=== PATIENT | female | born 2000 | race Caucasian/White ===

== ENCOUNTER 2022-08-01 16:32 | Inpatient (IN) ==
[2022-08-01 17:19] LABS: Basophils # (auto) 0.06 K/uL (0-0.2); Basophils % (auto) 0.7 %; Eosinophils % (auto) 1.2 %; Hemoglobin 14.3 g/dl (12.0-16.0); Immature Granulocytes # (auto) 0.01 K/uL (0.00-0.02); Immature Granulocytes % (auto) 0.1 %; Lymphocytes # (auto) 2.91 K/uL (1.2-3.4); Lymphocytes % (auto) 34.1 %; Mean Corpuscular Hemoglobin 31.7 pg (25.0-34.0); Mean Corpuscular Volume 93.1 fL (80.0-100.0); Monocytes # (auto) 0.38 K/uL (0.24-0.82); Monocytes % (auto) 4.5 %; Neutrophils # (auto) 5.07 K/uL (1.4-6.5); Neutrophils % (auto) 59.4 %; Platelet Count 250 K/uL (130-400); RDW Standard Deviation 41.3 fL (36.4-46.3); Red Blood Count 4.51 M/uL (3.93-5.22); White Blood Count 8.53 K/ul (4.8-10.8)
[2022-08-01 17:23] LABS: Appearance Urine Clear (Clear); Bacteria Urine Automated 1+ (Negative); Bilirubin Urine Negative (Negative); Blood Urine Trace (Negative); Cast Urine Automated 0 /lpf (0-5); Color Urine Yellow; Epithelial Cell Urine Auto 20-30 /lpf (0-5); Glucose Urine UA Negative (Negative); Ketones Urine Negative (Negative); Leukocyte Esterase Urine Negative (Negative); Nitrite Urine Negative (Negative); Protein Urine Negative (Negative); RBC Urine Automated 0-4 /hpf (0-4); Specific Gravity Urine 1.007 (1.000-1.030); Urobilinogen Urine Negative (Negative)
--- NOTE | 2022-08-01 17:39 | Emergency Department Note ---
Impression & Plan Depression with suicidal ideation Admission ED Provider Note HPI: The patient is a 22-year-old female who presents to the emergency department with a chief complaint of increasing anxiety and depression and thoughts of self-harm. Patient is requesting inpatient admission for psychiatric care. On arrival the patient is hemodynamically stable, she is in no acute distress. She states that she does not know exactly why she has been feeling this way recently, denies any particular new stressors in her life, denies any plan to harm herself but states that she is having increasing feelings of self-harm generally. Patient denies any alcohol use or drug use. ROS: -Psychiatric: Anxiety/depression, suicidal thoughts *10 point review systems was conducted and is otherwise negative unless stated above *Outpatient medications and allergy history reviewed PE: General: Alert HEENT: Normocephalic, trachea midline Eyes: Extraocular eye movement is intact, no scleral erythema Pulmonary: Clear to auscultation bilaterally, no wheezing Cardio: Regular rate and rhythm GI: Abdomen is soft, nontender : No suprapubic tenderness MSK: No evidence of trauma or malformation of the extremities, no edema Skin: No evidence of rash Neuro: Alert, no focal deficits Psychiatric: Cooperative Medical Decision Making: Patient appears well on arrival here to the ED, she complains of some increasing anxiety/depression and is stating that she is having suicidal thoughts without a plan. Patient is requesting inpatient admission. Patient was medically cleared here in the ED and assessed by case management, she is determined appropriate for 201 admission. Bed search was initiated and the patient was accepted here 3 S. for inpatient psychiatric care. Patient was in agreement to this and 2010 signed by myself. Patient was transferred to 3 S. in stable condition for inpatient care. Diagnosis: 1. Suicidal thoughts 2. Anxiety/depression Disposition: Admission to psychiatry under 201 Tano Steven DO Emergency Medicine Past Med/Surg History Social History Smoking Status: Never smoker Feels Safe at Home: Yes Allergies Allergies Allergy/AdvReac Type Severity Reaction Status Date / Time No Known Allergies Allergy Unverified 08/01/22 17:47 Home Meds Home Medications Medication Instructions Recorded Confirmed Lexapro 20 mg PO DAILY 08/01/22 08/01/22 Results & Data (ED) Vital Signs Vital Signs - 24 hr 08/01/22 16:43 08/01/22 20:00 Temperature 36.1 C L Temperature Source Temporal Artery Scan Pulse Rate 88 Pulse Rate [Apical] 70 Respiratory Rate 22 16 Respiratory Effort / Characteristics Non-Labored Spontaneous Non-Labored Respiratory Depth Normal Normal Blood Pressure 129/83 Blood Pressure [Right Arm] 109/63 Blood Pressure Mean 98 Blood Pressure Mean [Right Arm] 78 Pulse Oximetry 98 97 Oxygen Delivery Method Room Air Room Air Sepsis Recent Fever Within 48 Hours No Sepsis New/Unexplained Change in Mental Status No Sepsis Action Taken by Nursing No Action Required Laboratory Data Result diagrams: 08/01/22 17:05 08/01/22 17:05 Lab Results 08/01/22 08/01/22 08/01/22 Range/Units 17:05 17:05 17:05 WBC 8.53 (4.8-10.8) K/ul RBC 4.51 (3.93-5.22) M/uL Hgb 14.3 (12.0-16.0) g/dl Hct 42.0 (34.1-44.9) % MCV 93.1 (80.0-100.0) fL MCH 31.7 (25.0-34.0) pg MCHC 34.0 (32.0-36.0) g/dL RDW Std Deviation 41.3 (36.4-46.3) fL RDW Coeff of Kapil 12.0 (11.5-14.5) % Plt Count 250 (130-400) K/uL MPV 12.0 (9.4-12.3) fL Immature Gran % (Auto) 0.1 % Neut % (Auto) 59.4 % Lymph % (Auto) 34.1 % [place] % (Auto) 4.5 % Eos % (Auto) 1.2 % Baso % (Auto) 0.7 % Neut # (Auto) 5.07 (1.4-6.5) K/uL Lymph # (Auto) 2.91 (1.2-3.4) K/uL [place] # (Auto) 0.38 (0.24-0.82) K/uL Eos # (Auto) 0.10 (0-0.50) K/uL Baso # (Auto) 0.06 (0-0.2) K/uL Immature Gran # (Auto) 0.01 (0.00-0.02) K/uL Sodium 139 (136-145) mmol/L Potassium 4.2 (3.5-5.1) mmol/L Chloride 105 (98-107) mmol/L Carbon Dioxide 28 (21-32) mmol/L Anion Gap 6 (3-11) BUN 9 (6-23) mg/dl Creatinine 0.64 (0.6-1.2) mg/dl Est Cr Clr Drug Dosing 126.2 ml/min Est GFR ( Amer) 148.9 ml/min Est GFR (Non-Af Amer) 128.5 ml/min BUN/Creatinine Ratio 14.1 (10-20) Glucose 75 (70-99(Fasting)) mg/dl Calcium 9.9 (8.5-10.1) mg/dl Total Bilirubin 0.4 (0.2-1.0) mg/dl AST 12 L (13-39) U/L ALT 10 (7-52) U/L Alkaline Phosphatase 56 (34-104) U/L Total Protein 7.7 (6.0-8.3) gm/dl Albumin 4.5 (3.4-5.0) gm/dl Globulin 3.2 (2.5-4.0) gm/dl Albumin/Globulin Ratio 1.4 (0.9-2) TSH 2.187 (0.300-4.500) uIu/ml Urine Color Urine Appearance (Clear) Urine pH (4.5-7.5) Ur Specific [place] (1.000-1.030) Urine Protein (Negative) Urine Glucose (UA) (Negative) Urine Ketones (Negative) Urine Blood (Negative) Urine Nitrite (Negative) Urine Bilirubin (Negative) Urine Urobilinogen (Negative) Ur Leukocyte Esterase (Negative) Urine WBC (Auto) (0-5) /hpf Urine RBC (Auto) (0-4) /hpf U Hyaline Cast (Auto) (0-5) /lpf U Epithel Cells (Auto) (0-5) /lpf Urine Bacteria (Auto) (Negative) POC Ur Test (NEG) Salicylates (3.0-30) mg/dl Urine Opiates Screen (Neg) Ur Methadone, Qual (Neg) Acetaminophen (10-30) ug/ml Urine Barbiturates (Neg) Ur Phencyclidine (PCP) (Neg) U Amphetamin/Meth Scrn (Neg) MDMA (Ecstasy) Screen (Neg) U Benzodiazepines Scrn (Neg) Ur Cocaine Metabolite (Neg) U Marijuana (THC) Screen (Neg) Ethyl Alcohol mg/dL (<10.0) mg/dl SARS-CoV-2, RNA, NAAT (NEGATIVE) 08/01/22 08/01/22 08/01/22 Range/Units 17:05 17:05 17:06 WBC (4.8-10.8) K/ul RBC (3.93-5.22) M/uL Hgb (12.0-16.0) g/dl Hct (34.1-44.9) % MCV (80.0-100.0) fL MCH (25.0-34.0) pg MCHC (32.0-36.0) g/dL RDW Std Deviation (36.4-46.3) fL RDW Coeff of Kapil (11.5-14.5) % Plt Count (130-400) K/uL MPV (9.4-12.3) fL Immature Gran % (Auto) % Neut % (Auto) % Lymph % (Auto) % [place] % (Auto) % Eos % (Auto) % Baso % (Auto) % Neut # (Auto) (1.4-6.5) K/uL Lymph # (Auto) (1.2-3.4) K/uL [place] # (Auto) (0.24-0.82) K/uL Eos # (Auto) (0-0.50) K/uL Baso # (Auto) (0-0.2) K/uL Immature Gran # (Auto) (0.00-0.02) K/uL Sodium (136-145) mmol/L Potassium (3.5-5.1) mmol/L Chloride (98-107) mmol/L Carbon Dioxide (21-32) mmol/L Anion Gap (3-11) BUN (6-23) mg/dl Creatinine (0.6-1.2) mg/dl Est Cr Clr Drug Dosing ml/min Est GFR ( Amer) ml/min Est GFR (Non-Af Amer) ml/min BUN/Creatinine Ratio (10-20) Glucose (70-99(Fasting)) mg/dl Calcium (8.5-10.1) mg/dl Total Bilirubin (0.2-1.0) mg/dl AST (13-39) U/L ALT (7-52) U/L Alkaline Phosphatase (34-104) U/L Total Protein (6.0-8.3) gm/dl Albumin (3.4-5.0) gm/dl Globulin (2.5-4.0) gm/dl Albumin/Globulin Ratio (0.9-2) TSH (0.300-4.500) uIu/ml Urine Color Yellow Urine Appearance Clear (Clear) Urine pH 7.0 (4.5-7.5) Ur Specific [place] 1.007 (1.000-1.030) Urine Protein Negative (Negative) Urine Glucose (UA) Negative (Negative) Urine Ketones Negative (Negative) Urine Blood Trace H (Negative) Urine Nitrite Negative (Negative) Urine Bilirubin Negative (Negative) Urine Urobilinogen Negative (Negative) Ur Leukocyte Esterase Negative (Negative) Urine WBC (Auto) 1-5 (0-5) /hpf Urine RBC (Auto) 0-4 (0-4) /hpf U Hyaline Cast (Auto) 0 (0-5) /lpf U Epithel Cells (Auto) 20-30 H (0-5) /lpf Urine Bacteria (Auto) 1+ H (Negative) POC Ur Test (NEG) Salicylates < 3.0 L (3.0-30) mg/dl Urine Opiates Screen (Neg) Ur Methadone, Qual (Neg) Acetaminophen < 3 L (10-30) ug/ml Urine Barbiturates (Neg) Ur Phencyclidine (PCP) (Neg) U Amphetamin/Meth Scrn (Neg) MDMA (Ecstasy) Screen (Neg) U Benzodiazepines Scrn (Neg) Ur Cocaine Metabolite (Neg) U Marijuana (THC) Screen (Neg) Ethyl Alcohol mg/dL < 10.0 (<10.0) mg/dl SARS-CoV-2, RNA, NAAT (NEGATIVE) 08/01/22 08/01/22 08/01/22 Range/Units 17:06 17:12 17:54 WBC (4.8-10.8) K/ul RBC (3.93-5.22) M/uL Hgb (12.0-16.0) g/dl Hct (34.1-44.9) % MCV (80.0-100.0) fL MCH (25.0-34.0) pg MCHC (32.0-36.0) g/dL RDW Std Deviation (36.4-46.3) fL RDW Coeff of Kapil (11.5-14.5) % Plt Count (130-400) K/uL MPV (9.4-12.3) fL Immature Gran % (Auto) % Neut % (Auto) % Lymph % (Auto) % [place] % (Auto) % Eos % (Auto) % Baso % (Auto) % Neut # (Auto) (1.4-6.5) K/uL Lymph # (Auto) (1.2-3.4) K/uL [place] # (Auto) (0.24-0.82) K/uL Eos # (Auto) (0-0.50) K/uL Baso # (Auto) (0-0.2) K/uL Immature Gran # (Auto) (0.00-0.02) K/uL Sodium (136-145) mmol/L Potassium (3.5-5.1) mmol/L Chloride (98-107) mmol/L Carbon Dioxide (21-32) mmol/L Anion Gap (3-11) BUN (6-23) mg/dl Creatinine (0.6-1.2) mg/dl Est Cr Clr Drug Dosing ml/min Est GFR ( Amer) ml/min Est GFR (Non-Af Amer) ml/min BUN/Creatinine Ratio (10-20) Glucose (70-99(Fasting)) mg/dl Calcium (8.5-10.1) mg/dl Total Bilirubin (0.2-1.0) mg/dl AST (13-39) U/L ALT (7-52) U/L Alkaline Phosphatase (34-104) U/L Total Protein (6.0-8.3) gm/dl Albumin (3.4-5.0) gm/dl Globulin (2.5-4.0) gm/dl Albumin/Globulin Ratio (0.9-2) TSH (0.300-4.500) uIu/ml Urine Color Urine Appearance (Clear) Urine pH (4.5-7.5) Ur Specific [place] (1.000-1.030) Urine Protein (Negative) Urine Glucose (UA) (Negative) Urine Ketones (Negative) Urine Blood (Negative) Urine Nitrite (Negative) Urine Bilirubin (Negative) Urine Urobilinogen (Negative) Ur Leukocyte Esterase (Negative) Urine WBC (Auto) (0-5) /hpf Urine RBC (Auto) (0-4) /hpf U Hyaline Cast (Auto) (0-5) /lpf U Epithel Cells (Auto) (0-5) /lpf Urine Bacteria (Auto) (Negative) POC Ur Test NEG (NEG) Salicylates (3.0-30) mg/dl Urine Opiates Screen Neg (Neg) Ur Methadone, Qual Neg (Neg) Acetaminophen (10-30) ug/ml Urine Barbiturates Neg (Neg) Ur Phencyclidine (PCP) Neg (Neg) U Amphetamin/Meth Scrn Neg (Neg) MDMA (Ecstasy) Screen Neg (Neg) U Benzodiazepines Scrn Neg (Neg) Ur Cocaine Metabolite Neg (Neg) U Marijuana (THC) Screen Pos H (Neg) Ethyl Alcohol mg/dL (<10.0) mg/dl SARS-CoV-2, RNA, NAAT NEGATIVE (NEGATIVE) Discharge Plan Visit Data Chief Complaint: Mental Health Evaluation Stated Complaint: MENTAL HEALTH SCREEING ED Provider: Tano Steven Discharge Problem: Depression with suicidal ideation Patient Disposition: Admitted As Inpatient Forms Stand Alone Forms: My [facility], Suicide Prevention Resources Prescriptions Prescriptions: No Action Lexapro 20 mg 20 mg PO DAILY Referrals [facility]errals: [facility] [Primary Care Provider] -
[2022-08-01 17:42] LABS: Acetaminophen < 3 ug/ml (10-30); Salicylate < 3.0 mg/dl (3.0-30)
[2022-08-01 17:43] LABS: Albumin Globulin Ratio 1.4 (0.9-2); Albumin Level 4.5 gm/dl (3.4-5.0); BUN Creatinine Ratio 14.1 (10-20); Bilirubin,Total 0.4 mg/dl (0.2-1.0); Calcium 9.9 mg/dl (8.5-10.1); Creatinine Clr Calc Pharmacy 126.2 ml/min; Est GFR (African American) 148.9 ml/min; Est GFR (Non-African American) 128.5 ml/min; Globulin 3.2 gm/dl (2.5-4.0); Potassium 4.2 mmol/L (3.5-5.1); Total Protein 7.7 gm/dl (6.0-8.3)
[2022-08-01 18:04] LABS: Amphetamines+Metham, Urine Neg (Neg); Barbiturates, Urine Neg (Neg); Benzodiazepine, Urine Neg (Neg); Cocaine, Urine Neg (Neg); MDMA (Ecstacy), Urine Neg (Neg); Methadone, Urine Neg (Neg); Opiate, Urine Neg (Neg); Phencyclidine, Urine Neg (Neg)
[2022-08-01] MEDS ORDERED: MAGNESIUM HYDROXIDE SUSP 30 ML UDC PO PRN (22:40)
[2022-08-01] MEDS ORDERED: BISMUTH SUBSALICYLATE LIQD 236 ML PO PRN (22:40)
[2022-08-01] MEDS ORDERED: SODIUM CHLORIDE 0.65% NA SOLN 45 ML (OCEAN) PRN (22:40)
[2022-08-01] MEDS ORDERED: ALUMINUM/MAGNESIUM SUSP 30 ML UDC PO PRN (22:40)
[2022-08-01] MEDS ORDERED: hydrOXYzine HCl 25 MG TAB PO PRN ×2 (22:40)
[2022-08-02] MEDS ORDERED: FLUARIX QUADRIVALENT 0.5 ML SYR IM ONE (00:23)
--- NOTE | 2022-08-02 13:14 | History & Physical ---
Date of Service August 02, 2022 Impression / Recommendations Impression 22 yo female with hx of depression and self-injurious behavior presents with persistent suicidal ideation and decline in overall functioning. (1) Depression with suicidal ideation: Plan The patient was admitted to the [facility] ([facility] unit) on q15 min checks (behavioral with suicide precautions) for safety. The patient will participate in group, recreational, and milieu therapies and will be offered additional individual and family sessions as clinically appropriate. Risks/benefits/alternatives reviewed re: antidepressants for the treatment of depression and/or anxiety. Discussion included but was not limited to FDA warnings re: suicidality in adolescents and young adults. The patient agreed continue Lexapro titration as discussed with her prescriber to 20 mg Lexapro daily. Inventory Assets Strengths: intelligent, help seeking Needs: improve coping skills, resume outpatient therapy Suicide Risk Level Suicide Risk Level: High-Moderate (q15 min suicide checks) Risk Factors Assessment : Yes Do You Have Access To A Gun?: No Mental Health Diagnoses: Yes Previous Attempt: No Previous Psychiatric Hospitalization: No Protective Factors Assessment Responsible for Young Children: No Employed: No Supportive Family: Yes Psychiatric History Identifying Data SARAHI REIS is a 22-year-old F who currently lives in [place], has a history of SIB, and was admitted on 08/01/22 22:40 on a 201 voluntary commitment for suicidal ideation. Chief Complaint "I've just been either numb or really really down and cutting doesn't help like it used to so I got worried what I might do". History of Present Illness Patient reports a history of depression and being in/out of therapy and on/off meds since age 15. She reports having a great start to the semester but after 3- 5 weeks noted a "down trend." She is having very depressed phases for 2-3 days at a time with little break in symptoms between. She hasn't been participating in therapy this semester as had to wait for assignment to another provider after her therapist relocated. She is scheduled for a meeting tomorrow but given persistence of SI, she called her mother for help and they both called [facility] for more urgent attention. She has been sleeping more, missing more class than is customary for her. 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 She describes the support of her fraternity as "the only good thing about college" but then qualifies that she enjoys college lifestyle and is looking forward to getting back to class, just not "big decisions" like whether or not to continue with her major. She reports always needing greater than 12 hours a sleep a day and currently some of her napping behaviors are avoidance. She denies that her cutting is an actual suicide attempt and states she was ambivalent about a plan but experiencing a lot of numbness. She has some superficial scratches on the back of her left wrist, mainly as "that's where my watch would cover." Past Psychiatric History Current Psychiatric Diagnosis: depression with suicidal ideation Previous Psych Admissions: none Do You Have Access To A Gun?: No History of Previous Suicide Attempt: No Past Medication Trials: Zoloft ("made me tired"), Wellbutrin Allergies Allergy/AdvReac Type Severity Reaction Status Date / Time No Known Allergies Allergy Unverified 08/01/22 17:47 Home Medications Medication Instructions Recorded Confirmed Type Lexapro 20 mg PO DAILY 08/01/22 08/01/22 History Family History Family History of: Doesn't Know Family Mental Health History Comment: thinks depression runs in her family but doesn't know specifics Alcohol History Hx of Alcohol Use Over the Past 12 Months: Yes (social drinking) AUDIT Total Score: 2 Smoking Use Have You Smoked or Used Tobacco Products in the Last 30 Days: No Smoking Status: Never smoker Substance History Hx of Prescription Med Misuse Over the Past 12 Months: No Hx of Over the Counter Med Misuse Over the Past 12 Months: No Hx of Inhalent Misuse Over the Past 12 Months: No Hx of Organic Substance Use Over the Past 12 Months: Yes (MJ weekly) Hx of Illegal Substances/Street Drug Use Over Past 12 Months: No Problems as a Result of Past Substance Use: None Identified Personal History Living Arrangements: Apartment Highest Grade Completed: Some College Highest Grade Completed Comment: josh, studying [employer] (6 year program) Marital Status: Single Number Of Children: 0 Beliefs That Will Affect Care: None Current Legal Problems: No Hx Traumatic Life Events: No (though did mention an unhealthy relationship in high school) Patient History Medical History (Updated 08/02/22 @ 13:10 by Xenia Cardenas MD) No active medical problems Social History Smoking Status: Never smoker Preferred Language: Yakut Communication Ability: Effective Licensed Sales Producer Required: No Beliefs That Will Affect Care: None Feels Safe at Home: Yes Assistive Devices: Contacts Review of Systems Review of Systems: All systems reviewed & are unremarkable except as noted in HPI & below Physical Exam Psychiatric: Orientation: alert and oriented x 3 Apperance: appropriately dressed and appropriately groomed Eye Contact: good eye contact Motor Behavior: no abnormal motor movements Speech: normal rate/rhythm/volume of speech Affect: + depressed affect Mood: + depressed mood Thought Process: goal directed thought process Thought Content: reality based without delusions Suicidal Thoughts: denies suicidal plan (on unit but unable to safety plan, active cutting); + reports suicidal thoughts (intemittent) Homicidal Thoughts: denies homicidal thoughts Hallucinations: no auditory hallucinations and no visual hallucinations Cognition: attention grossly intact and language grossly intact Estimated Intelligence: consistent with education level Insight: + limited insight Judgement: + limited judgement Vital Signs (Past 24 Hours): Last Vital Signs Temp 36.6 C 08/02/22 06:45 Pulse 82 08/02/22 06:46 Resp 16 08/02/22 06:45 BP 95/64 L 08/02/22 06:46 Pulse Ox 97 08/01/22 20:00 O2 Del Method 08/01/22 20:00 Exam Statement: A physical exam was performed in the ED by Dr. Steven for the purposes of medical clearance. I accept that physical as correct and adequate for the purposes of the inpatient physical exam. Results & Data ([facility]) Laboratory Results Laboratory Results - last 24 hr 08/01/22 08/01/22 08/01/22 17:05 17:05 17:05 WBC 8.53 RBC 4.51 Hgb 14.3 Hct 42.0 MCV 93.1 MCH 31.7 MCHC 34.0 RDW Std Deviation 41.3 RDW Coeff of Kapil 12.0 Plt Count 250 MPV 12.0 Immature Gran % (Auto) 0.1 Neut % (Auto) 59.4 Lymph % (Auto) 34.1 [place] % (Auto) 4.5 Eos % (Auto) 1.2 Baso % (Auto) 0.7 Neut # (Auto) 5.07 Lymph # (Auto) 2.91 [place] # (Auto) 0.38 Eos # (Auto) 0.10 Baso # (Auto) 0.06 Immature Gran # (Auto) 0.01 Sodium 139 Potassium 4.2 Chloride 105 Carbon Dioxide 28 Anion Gap 6 BUN 9 Creatinine 0.64 Est Cr Clr Drug Dosing 126.2 Est GFR ( Amer) 148.9 Est GFR (Non-Af Amer) 128.5 BUN/Creatinine Ratio 14.1 Glucose 75 Calcium 9.9 Total Bilirubin 0.4 AST 12 L ALT 10 Alkaline Phosphatase 56 Total Protein 7.7 Albumin 4.5 Globulin 3.2 Albumin/Globulin Ratio 1.4 TSH 2.187 Urine Color Urine Appearance Urine pH Ur Specific [place] Urine Protein Urine Glucose (UA) Urine Ketones Urine Blood Urine Nitrite Urine Bilirubin Urine Urobilinogen Ur Leukocyte Esterase Urine WBC (Auto) Urine RBC (Auto) U Hyaline Cast (Auto) U Epithel Cells (Auto) Urine Bacteria (Auto) POC Ur Test Salicylates Urine Opiates Screen Ur Methadone, Qual Acetaminophen Urine Barbiturates Ur Phencyclidine (PCP) U Amphetamin/Meth Scrn MDMA (Ecstasy) Screen U Benzodiazepines Scrn Ur Cocaine Metabolite U Marijuana (THC) Screen U Marijuana THC Carboxy Drug Screen Comment Ethyl Alcohol mg/dL SARS-CoV-2, RNA, NAAT 08/01/22 08/01/22 08/01/22 17:05 17:05 17:06 WBC RBC Hgb Hct MCV MCH MCHC RDW Std Deviation RDW Coeff of Kapil Plt Count MPV Immature Gran % (Auto) Neut % (Auto) Lymph % (Auto) [place] % (Auto) Eos % (Auto) Baso % (Auto) Neut # (Auto) Lymph # (Auto) [place] # (Auto) Eos # (Auto) Baso # (Auto) Immature Gran # (Auto) Sodium Potassium Chloride Carbon Dioxide Anion Gap BUN Creatinine Est Cr Clr Drug Dosing Est GFR ( Amer) Est GFR (Non-Af Amer) BUN/Creatinine Ratio Glucose Calcium Total Bilirubin AST ALT Alkaline Phosphatase Total Protein Albumin Globulin Albumin/Globulin Ratio TSH Urine Color Yellow Urine Appearance Clear Urine pH 7.0 Ur Specific [place] 1.007 Urine Protein Negative Urine Glucose (UA) Negative Urine Ketones Negative Urine Blood Trace H Urine Nitrite Negative Urine Bilirubin Negative Urine Urobilinogen Negative Ur Leukocyte Esterase Negative Urine WBC (Auto) 1-5 Urine RBC (Auto) 0-4 U Hyaline Cast (Auto) 0 U Epithel Cells (Auto) 20-30 H Urine Bacteria (Auto) 1+ H POC Ur Test Salicylates < 3.0 L Urine Opiates Screen Ur Methadone, Qual Acetaminophen < 3 L Urine Barbiturates Ur Phencyclidine (PCP) U Amphetamin/Meth Scrn MDMA (Ecstasy) Screen U Benzodiazepines Scrn Ur Cocaine Metabolite U Marijuana (THC) Screen U Marijuana THC Carboxy Drug Screen Comment Ethyl Alcohol mg/dL < 10.0 SARS-CoV-2, RNA, NAAT 08/01/22 08/01/22 08/01/22 17:06 17:06 17:12 WBC RBC Hgb Hct MCV MCH MCHC RDW Std Deviation RDW Coeff of Kapil Plt Count MPV Immature Gran % (Auto) Neut % (Auto) Lymph % (Auto) [place] % (Auto) Eos % (Auto) Baso % (Auto) Neut # (Auto) Lymph # (Auto) [place] # (Auto) Eos # (Auto) Baso # (Auto) Immature Gran # (Auto) Sodium Potassium Chloride Carbon Dioxide Anion Gap BUN Creatinine Est Cr Clr Drug Dosing Est GFR ( Amer) Est GFR (Non-Af Amer) BUN/Creatinine Ratio Glucose Calcium Total Bilirubin AST ALT Alkaline Phosphatase Total Protein Albumin Globulin Albumin/Globulin Ratio TSH Urine Color Urine Appearance Urine pH Ur Specific [place] Urine Protein Urine Glucose (UA) Urine Ketones Urine Blood Urine Nitrite Urine Bilirubin Urine Urobilinogen Ur Leukocyte Esterase Urine WBC (Auto) Urine RBC (Auto) U Hyaline Cast (Auto) U Epithel Cells (Auto) Urine Bacteria (Auto) POC Ur Test NEG Salicylates Urine Opiates Screen Neg Ur Methadone, Qual Neg Acetaminophen Urine Barbiturates Neg Ur Phencyclidine (PCP) Neg U Amphetamin/Meth Scrn Neg MDMA (Ecstasy) Screen Neg U Benzodiazepines Scrn Neg Ur Cocaine Metabolite Neg U Marijuana (THC) Screen Pos H U Marijuana THC Carboxy Pending Drug Screen Comment Pending Ethyl Alcohol mg/dL SARS-CoV-2, RNA, NAAT 08/01/22 17:54 WBC RBC Hgb Hct MCV MCH MCHC RDW Std Deviation RDW Coeff of Kapil Plt Count MPV Immature Gran % (Auto) Neut % (Auto) Lymph % (Auto) [place] % (Auto) Eos % (Auto) Baso % (Auto) Neut # (Auto) Lymph # (Auto) [place] # (Auto) Eos # (Auto) Baso # (Auto) Immature Gran # (Auto) Sodium Potassium Chloride Carbon Dioxide Anion Gap BUN Creatinine Est Cr Clr Drug Dosing Est GFR ( Amer) Est GFR (Non-Af Amer) BUN/Creatinine Ratio Glucose Calcium Total Bilirubin AST ALT Alkaline Phosphatase Total Protein Albumin Globulin Albumin/Globulin Ratio TSH Urine Color Urine Appearance Urine pH Ur Specific [place] Urine Protein Urine Glucose (UA) Urine Ketones Urine Blood Urine Nitrite Urine Bilirubin Urine Urobilinogen Ur Leukocyte Esterase Urine WBC (Auto) Urine RBC (Auto) U Hyaline Cast (Auto) U Epithel Cells (Auto) Urine Bacteria (Auto) POC Ur Test Salicylates Urine Opiates Screen Ur Methadone, Qual Acetaminophen Urine Barbiturates Ur Phencyclidine (PCP) U Amphetamin/Meth Scrn MDMA (Ecstasy) Screen U Benzodiazepines Scrn Ur Cocaine Metabolite U Marijuana (THC) Screen U Marijuana THC Carboxy Drug Screen Comment Ethyl Alcohol mg/dL SARS-CoV-2, RNA, NAAT NEGATIVE Current Inpatient Medications Current Inpatient Medications: Current Inpatient Medications Acetaminophen (Acetaminophen 325 Mg Tab) 650 mg PO Q4H PRN PRN Reason: Headache or Minor Fever Stop: 08/31/22 22:39 Al Hydrox/Mg Hydrox/Simethicone (Aluminum/Magnesium Susp 30 Ml Udc) 30 ml PO Q4H PRN PRN Reason: GI Upset Stop: 08/31/22 22:39 Bismuth Subsalicylate (Bismuth Subsalicylate Liqd 236 Ml) 15 ml PO PRN PRN PRN Reason: Loose Stool Stop: 08/31/22 22:39 Hydroxyzine HCl (Hydroxyzine Hcl 25 Mg Tab) 50 mg PO HSZ PRN PRN Reason: Insomnia Stop: 08/31/22 22:39 Hydroxyzine HCl (Hydroxyzine Hcl 25 Mg Tab) 25 mg PO Q4H PRN PRN Reason: Anxiety Stop: 08/31/22 22:39 Magnesium Hydroxide (Magnesium Hydroxide Susp 30 Ml Udc) 30 ml PO DAILY PRN PRN Reason: Constipation Stop: 08/31/22 22:39 Sodium Chloride (Sodium Chloride 0.65% Na Soln 45 Ml ([place])) 1 - 2 sprays NA PRN PRN PRN Reason: Nasal Dryness/Congestion Stop: 08/31/22 22:39
[2022-08-02] MEDS: ESCITALOPRAM OXALATE 20 MG TAB PO SCH (13:33)
[2022-08-02] MEDS: ACETAMINOPHEN 325 MG TAB PO PRN (15:26)
[2022-08-03] MEDS: ESCITALOPRAM OXALATE 20 MG TAB PO SCH (09:28)
[2022-08-03] MEDS ORDERED: busPIRone 5 MG TAB PO PRN (12:04)
--- NOTE | 2022-08-03 12:41 | Psychiatric Progress Note ---
Date of Service August 03, 2022 Impression / Recommendations Impression 22 yo female with hx of depression and self-injurious behavior presents with persistent suicidal ideation and decline in overall functioning. 08/03/22: improving (1) Depression with suicidal ideation: Plan 08/03/22: risks/benefits/alternatives reviewed re: prn Buspar 5 mg TID as adjunctive tx for anxiety as Lexapro increase takes time and sister does well with it; patient agreeable. Family session. 08/02/22: The patient was admitted to the [facility] ([facility] mental [facility] unit) on q15 min checks (behavioral with suicide precautions) for safety. The patient will participate in group, recreational, and milieu therapies and will be offered additional individual and family sessions as clinically appropriate. Risks/benefits/alternatives reviewed re: antidepressants for the treatment of depression and/or anxiety. Discussion included but was not limited to FDA warnings re: suicidality in adolescents and young adults. The patient agreed continue Lexapro titration as discussed with her prescriber to 20 mg Lexapro daily. Inventory Assets Strengths: intelligent, help seeking Needs: improve coping skills, resume outpatient therapy Suicide Risk Level Suicide Risk Level: Moderate (q15 min suicide checks) Risk Factors Assessment : Yes Do You Have Access To A Gun?: No Mental Health Diagnoses: Yes Previous Attempt: No Previous Psychiatric Hospitalization: No Protective Factors Assessment Responsible for Young Children: No Employed: No Supportive Family: Yes Interval History Identifying Information SARAHI REIS is a 22-year-old F who currently lives in [place], has a history of SIB, and was admitted on 08/01/22 22:40 on a 201 voluntary commitment for suicidal ideation. Chief Complaint "I feel like I just needed seen quickly, now I"m anxious about next steps." Review of Systems Sleep Information Total Hours of Sleep: 7.25 Sleep Comments: pt on q-15 minute checks Meal Information Percent Meal Consumed - Breakfast: 80 Percent Meal Consumed - Lunch: 50 Percent Meal Consumed - Dinner: 50 Subjective Subjective Patient was seen & assessed and interval progress reviewed with nursing and social work. Tolerating medication. Denies urge to self-injure on unit. Unclear if she and parents are on same page with regards to her semester. Physical Exam Psychiatric Orientation: alert and oriented x 3 Apperance: appropriately dressed and appropriately groomed Eye Contact: good eye contact Motor Behavior: no abnormal motor movements Speech: normal rate/rhythm/volume of speech Affect: + depressed affect Mood: + depressed mood Thought Process: goal directed thought process Thought Content: reality based without delusions Suicidal Thoughts: denies suicidal thoughts and denies suicidal plan Homicidal Thoughts: denies homicidal thoughts Hallucinations: no auditory hallucinations and no visual hallucinations Cognition: attention grossly intact and language grossly intact Estimated Intelligence: consistent with education level Insight: + limited insight Judgement: + limited judgement Vital Signs (Past 24 Hours) Last Vital Signs Temp 36.6 C 08/03/22 06:00 Pulse 96 H 08/03/22 06:41 Resp 16 08/03/22 06:00 BP 95/65 L 08/03/22 06:41 Pulse Ox 97 08/01/22 20:00 O2 Del Method 08/01/22 20:00 Results & Data ([facility]) Current Inpatient Medications Current Inpatient Medications: Current Inpatient Medications Acetaminophen (Acetaminophen 325 Mg Tab) 650 mg PO Q4H PRN PRN Reason: Headache or Minor Fever Stop: 08/31/22 22:39 Last Admin: 08/02/22 15:26 Dose: 650 mg Al Hydrox/Mg Hydrox/Simethicone (Aluminum/Magnesium Susp 30 Ml Udc) 30 ml PO Q4H PRN PRN Reason: GI Upset Stop: 08/31/22 22:39 Bismuth Subsalicylate (Bismuth Subsalicylate Liqd 236 Ml) 15 ml PO PRN PRN PRN Reason: Loose Stool Stop: 08/31/22 22:39 Buspirone HCl (Buspirone 5 Mg Tab) 5 mg PO TID PRN PRN Reason: Anxiety Stop: 09/02/22 13:59 Escitalopram Oxalate (Escitalopram Oxalate 20 Mg Tab) 20 mg PO QAM CHIVO Stop: 09/01/22 12:59 Last Admin: 08/03/22 09:28 Dose: 20 mg Hydroxyzine HCl (Hydroxyzine Hcl 25 Mg Tab) 50 mg PO HSZ PRN PRN Reason: Insomnia Stop: 08/31/22 22:39 Last Admin: 08/02/22 21:19 Dose: 50 mg Magnesium Hydroxide (Magnesium Hydroxide Susp 30 Ml Udc) 30 ml PO DAILY PRN PRN Reason: Constipation Stop: 08/31/22 22:39 Sodium Chloride (Sodium Chloride 0.65% Na Soln 45 Ml ([facility])) 1 - 2 sprays NA PRN PRN PRN Reason: Nasal Dryness/Congestion Stop: 08/31/22 22:39 Mental Health & Subst Abuse Tx Therapist Name of Therapist: Ryan Linn Therapist's Date of Therapist Appointment: 08/10/22 Time of Therapist Appointment: 11:00 AM Therapy Appointment Comment: virtual Tromper Name of Tromper: None Post Discharge Appointments Primary Care Physician Name Of Family Doctor: [facility] - Dr. Vanita Connolly Primary Care Date of Appointment with PCP: 08/16/22 Time of Appointment with PCP: 10 AM Provider Appointment Comment: [address], [place] [address]
[2022-08-03] MEDS: ACETAMINOPHEN 325 MG TAB PO PRN (21:36)
[2022-08-03 23:07] LABS: Marijuana Quant, GCMS Urine 42 ng/mL (<5)
[2022-08-04] MEDS: ESCITALOPRAM OXALATE 20 MG TAB PO SCH (08:53)
--- NOTE | 2022-08-04 09:15 | Discharge Summary ---
Date of Service August 04, 2022 History of Present Illness Patient reports a history of depression and being in/out of therapy and on/off meds since age 15. She reports having a great start to the semester but after 3- 5 weeks noted a "down trend." She is having very depressed phases for 2-3 days at a time with little break in symptoms between. She hasn't been participating in therapy this semester as had to wait for assignment to another provider after her therapist relocated. She is scheduled for a meeting tomorrow but given persistence of SI, she called her mother for help and they both called [facility] for more urgent attention. She has been sleeping more, missing more class than is customary for her. 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 She describes the support of her fraternity as "the only good thing about college" but then qualifies that she enjoys college lifestyle and is looking forward to getting back to class, just not "big decisions" like whether or not to continue with her major. She reports always needing greater than 12 hours a sleep a day and currently some of her napping behaviors are avoidance. She denies that her cutting is an actual suicide attempt and states she was ambivalent about a plan but experiencing a lot of numbness. She has some superficial scratches on the back of her left wrist, mainly as "that's where my watch would cover." Physical Exam Psychiatric See admission H&P and DOD assessment. Vital Signs (Past 24 Hours) Last Vital Signs Temp 36.6 C 08/04/22 06:24 Pulse 83 08/04/22 06:24 Resp 18 08/04/22 06:24 BP 90/59 L 08/04/22 06:26 Pulse Ox 97 08/01/22 20:00 O2 Del Method 08/01/22 20:00 Principal Diagnosis major depressive disorder Psychiatric Data See daily stay summary. In short, safety was maintained and the patient was cooperative with care. Medication changes included titration of Lexapro as planned and they tolerated this well. She was also provided a prn Buspar 5 mg up to TID trial as sister reportedly did well with medication. A family session was held and safety plan was completed prior to discharge. Day of Discharge Assessment Today the patient voices readiness for discharge. They note improvement in mood and deny thoughts to harm self or others. Thoughts remain organized and they are improved from admission. There is no evidence of psychosis. They agree to take mediations as prescribed and keep follow-up appointments. They are stable for discharge to outpatient level of care. Transition of Care Transition Of Care Record: was reviewed with the patient Advance Directives Advance Directives Information Provided: Yes Advance Directives: No Mental Health Advance Directive: No Advance Directives on File: No Living Will: No Power of Professor Of Mathematics: No Advance Directives Reason:: Declines as Mental Health Visit. Suicide Risk Level Suicide Risk Level Comments: Suicide risk at discharge is deemed low as the patient is no longer requiring 24-hr monitoring, has a safety plan, and is free of suicidal ideation at discharge. Risk Factors Assessment : Yes Do You Have Access To A Gun?: No Mental Health Diagnoses: Yes Previous Attempt: No Previous Psychiatric Hospitalization: No Protective Factors Assessment Responsible for Young Children: No Employed: No Supportive Family: Yes Tobacco Cessation at Discharge Tobacco Cessation Medication Prescribed at Discharge: Not Applicable/Non-Smoker Total Time Total Time Spent: Greater Than 30 Minutes Total Time Includes: Examination of the patient, Discharge Planning and Medication Reconciliation Discharge Data Lab Results 08/01/22 08/01/22 08/01/22 17:05 17:05 17:05 WBC 8.53 RBC 4.51 Hgb 14.3 Hct 42.0 MCV 93.1 MCH 31.7 MCHC 34.0 RDW Std Deviation 41.3 RDW Coeff of Kapil 12.0 Plt Count 250 MPV 12.0 Immature Gran % (Auto) 0.1 Neut % (Auto) 59.4 Lymph % (Auto) 34.1 [place] % (Auto) 4.5 Eos % (Auto) 1.2 Baso % (Auto) 0.7 Neut # (Auto) 5.07 Lymph # (Auto) 2.91 [place] # (Auto) 0.38 Eos # (Auto) 0.10 Baso # (Auto) 0.06 Immature Gran # (Auto) 0.01 Sodium 139 Potassium 4.2 Chloride 105 Carbon Dioxide 28 Anion Gap 6 BUN 9 Creatinine 0.64 Est Cr Clr Drug Dosing 126.2 Est GFR ( Amer) 148.9 Est GFR (Non-Af Amer) 128.5 BUN/Creatinine Ratio 14.1 Glucose 75 Calcium 9.9 Total Bilirubin 0.4 AST 12 L ALT 10 Alkaline Phosphatase 56 Total Protein 7.7 Albumin 4.5 Globulin 3.2 Albumin/Globulin Ratio 1.4 TSH 2.187 Urine Color Urine Appearance Urine pH Ur Specific [place] Urine Protein Urine Glucose (UA) Urine Ketones Urine Blood Urine Nitrite Urine Bilirubin Urine Urobilinogen Ur Leukocyte Esterase Urine WBC (Auto) Urine RBC (Auto) U Hyaline Cast (Auto) U Epithel Cells (Auto) Urine Bacteria (Auto) POC Ur Test Salicylates Urine Opiates Screen Ur Methadone, Qual Acetaminophen Urine Barbiturates Ur Phencyclidine (PCP) U Amphetamin/Meth Scrn MDMA (Ecstasy) Screen U Benzodiazepines Scrn Ur Cocaine Metabolite U Marijuana (THC) Screen U Marijuana THC Carboxy Drug Screen Comment Ethyl Alcohol mg/dL SARS-CoV-2, RNA, NAAT 08/01/22 08/01/22 08/01/22 17:05 17:05 17:06 WBC RBC Hgb Hct MCV MCH MCHC RDW Std Deviation RDW Coeff of Kapil Plt Count MPV Immature Gran % (Auto) Neut % (Auto) Lymph % (Auto) [place] % (Auto) Eos % (Auto) Baso % (Auto) Neut # (Auto) Lymph # (Auto) [place] # (Auto) Eos # (Auto) Baso # (Auto) Immature Gran # (Auto) Sodium Potassium Chloride Carbon Dioxide Anion Gap BUN Creatinine Est Cr Clr Drug Dosing Est GFR ( Amer) Est GFR (Non-Af Amer) BUN/Creatinine Ratio Glucose Calcium Total Bilirubin AST ALT Alkaline Phosphatase Total Protein Albumin Globulin Albumin/Globulin Ratio TSH Urine Color Yellow Urine Appearance Clear Urine pH 7.0 Ur Specific [place] 1.007 Urine Protein Negative Urine Glucose (UA) Negative Urine Ketones Negative Urine Blood Trace H Urine Nitrite Negative Urine Bilirubin Negative Urine Urobilinogen Negative Ur Leukocyte Esterase Negative Urine WBC (Auto) 1-5 Urine RBC (Auto) 0-4 U Hyaline Cast (Auto) 0 U Epithel Cells (Auto) 20-30 H Urine Bacteria (Auto) 1+ H POC Ur Test Salicylates < 3.0 L Urine Opiates Screen Ur Methadone, Qual Acetaminophen < 3 L Urine Barbiturates Ur Phencyclidine (PCP) U Amphetamin/Meth Scrn MDMA (Ecstasy) Screen U Benzodiazepines Scrn Ur Cocaine Metabolite U Marijuana (THC) Screen U Marijuana THC Carboxy Drug Screen Comment Ethyl Alcohol mg/dL < 10.0 SARS-CoV-2, RNA, NAAT 08/01/22 08/01/22 08/01/22 17:06 17:06 17:12 WBC RBC Hgb Hct MCV MCH MCHC RDW Std Deviation RDW Coeff of Kapil Plt Count MPV Immature Gran % (Auto) Neut % (Auto) Lymph % (Auto) [place] % (Auto) Eos % (Auto) Baso % (Auto) Neut # (Auto) Lymph # (Auto) [place] # (Auto) Eos # (Auto) Baso # (Auto) Immature Gran # (Auto) Sodium Potassium Chloride Carbon Dioxide Anion Gap BUN Creatinine Est Cr Clr Drug Dosing Est GFR ( Amer) Est GFR (Non-Af Amer) BUN/Creatinine Ratio Glucose Calcium Total Bilirubin AST ALT Alkaline Phosphatase Total Protein Albumin Globulin Albumin/Globulin Ratio TSH Urine Color Urine Appearance Urine pH Ur Specific [place] Urine Protein Urine Glucose (UA) Urine Ketones Urine Blood Urine Nitrite Urine Bilirubin Urine Urobilinogen Ur Leukocyte Esterase Urine WBC (Auto) Urine RBC (Auto) U Hyaline Cast (Auto) U Epithel Cells (Auto) Urine Bacteria (Auto) POC Ur Test NEG Salicylates Urine Opiates Screen Neg Ur Methadone, Qual Neg Acetaminophen Urine Barbiturates Neg Ur Phencyclidine (PCP) Neg U Amphetamin/Meth Scrn Neg MDMA (Ecstasy) Screen Neg U Benzodiazepines Scrn Neg Ur Cocaine Metabolite Neg U Marijuana (THC) Screen Pos H U Marijuana THC Carboxy 42 H Drug Screen Comment SEE NOTE Ethyl Alcohol mg/dL SARS-CoV-2, RNA, NAAT 08/01/22 17:54 WBC RBC Hgb Hct MCV MCH MCHC RDW Std Deviation RDW Coeff of Kapil Plt Count MPV Immature Gran % (Auto) Neut % (Auto) Lymph % (Auto) [place] % (Auto) Eos % (Auto) Baso % (Auto) Neut # (Auto) Lymph # (Auto) [place] # (Auto) Eos # (Auto) Baso # (Auto) Immature Gran # (Auto) Sodium Potassium Chloride Carbon Dioxide Anion Gap BUN Creatinine Est Cr Clr Drug Dosing Est GFR ( Amer) Est GFR (Non-Af Amer) BUN/Creatinine Ratio Glucose Calcium Total Bilirubin AST ALT Alkaline Phosphatase Total Protein Albumin Globulin Albumin/Globulin Ratio TSH Urine Color Urine Appearance Urine pH Ur Specific [place] Urine Protein Urine Glucose (UA) Urine Ketones Urine Blood Urine Nitrite Urine Bilirubin Urine Urobilinogen Ur Leukocyte Esterase Urine WBC (Auto) Urine RBC (Auto) U Hyaline Cast (Auto) U Epithel Cells (Auto) Urine Bacteria (Auto) POC Ur Test Salicylates Urine Opiates Screen Ur Methadone, Qual Acetaminophen Urine Barbiturates Ur Phencyclidine (PCP) U Amphetamin/Meth Scrn MDMA (Ecstasy) Screen U Benzodiazepines Scrn Ur Cocaine Metabolite U Marijuana (THC) Screen U Marijuana THC Carboxy Drug Screen Comment Ethyl Alcohol mg/dL SARS-CoV-2, RNA, NAAT NEGATIVE Hospital Course (1) Depression with suicidal ideation: Plan 08/03/22: risks/benefits/alternatives reviewed re: prn Buspar 5 mg TID as adjunctive tx for anxiety as Lexapro increase takes time and sister does well with it; patient agreeable. Family session. 08/02/22: The patient was admitted to the [facility] ([facility] mental health unit) on q15 min checks (behavioral with suicide precautions) for safety. The patient will participate in group, recreational, and milieu therapies and will be offered additional individual and family sessions as clinically appropriate. Risks/benefits/alternatives reviewed re: antidepressants for the treatment of depression and/or anxiety. Discussion included but was not limited to FDA warnings re: suicidality in adolescents and young adults. The patient agreed continue Lexapro titration as discussed with her prescriber to 20 mg Lexapro daily. Mental Health & Subst Abuse Tx Psychiatrist Name of Psychiatrist: [facility]: Psychiatry - JOVAN Padilla Psychiatrist's Date of Appointment with Psychiatrist: 09/11/22 Time of Appointment with Psychiatrist: 12:30 PM Psychiatric Appointment Comment: A link will be sent to you via e-mail to login to patient portal. Therapist Name of Therapist: Ryan Linn Therapist's Date of Therapist Appointment: 08/10/22 Time of Therapist Appointment: 11:00 AM Therapy Appointment Comment: virtual Yarn Man Name of Yarn Man: None Post Discharge Appointments Primary Care Physician Name Of Family Doctor: [facility] - Dr. Vanita Connolly Primary Care Date of Appointment with PCP: 08/16/22 Time of Appointment with PCP: 10 AM Provider Appointment Comment: [address], [place] [address] Smoking Cessation Counseling Tobacco Cessation Medication Prescribed at Discharge: Not Applicable/Non-Smoker Other #1: Name of Aftercare Appointment: [facility] - Candelariahonorio Reeves Phone Number of Aftercare Appointment: [phone] Date of Aftercare Appointment: 08/07/22 Time of Aftercare Appointment: 1:00 PM Aftercare Appointment Comment: Check [facility] email for Zoom link. #2: Name of Aftercare Appointment: [facility] Phone Number of Aftercare Appointment: [phone] Aftercare Appointment Comment: Complete intake paperwork in your [facility] email to have intake scheduled. #3: Name of Aftercare Appointment: [facility]: Therapy - Dr. Myriam Coffey Phone Number of Aftercare Appointment: [phone] Date of Aftercare Appointment: 08/08/22 Time of Aftercare Appointment: 3:00 PM Aftercare Appointment Comment: A link will be sent to you via email to [employer] your portal. Contact Information Discharge Discharge [address]: [address] [place] [id number] Discharge Plan Discharge Items Patient Disposition: Home - Self-Care Reason For Visit: MDD Discharge Diagnosis: major depressive disorder Activity: Resume your previous activity Non-emergency contact: Primary Care Provider, Psychiatrist and Therapist Call non-emergency contact if: you have any medication questions and your symptoms worsen Follow-up/Referrals: [facility] [Primary Care Provider] - Diet: Regular Addtl Attending Provider Instructions: SPECIAL CARE INSTRUCTIONS: 1. Follow through with your scheduled aftercare appointments. If unable to keep an appointment, please call to reschedule. 2. Take your medication only as prescribed. Medication should not be changed or stopped without the approval of your doctor. In the event of worsening symptoms or concerns about side effects, contact your doctor immediately. 3. Utilize new healthy coping skills, anger management skills, and stress management skills learned during your hospitalization. Journal feelings and process them with a support person. Identify stressors or situations that may result in relapse, deterioration or inappropriate behaviors and develop a plan to deal with those issues. 4. If your coping skills are ineffective and you are in crisis, contact your outpatient providers for direction. If unable to reach your providers, please call the [facility] CRISIS LINE AT , go to the [facility] walk-in center at [address], [address], [place], or go to the closest Emergency Room. 5. Avoid alcohol and un-prescribed drugs. 6. You have been provided with the Mental Health Advance Directives Pamphlet for your review. 7. Your condition is stable for discharge to outpatient level of care, but recovery is an ongoing process. Ifthoughts to harm yourself or others return, follow the safety plan developed during your stay. Planning for a safe return home includes securing weapons. Our treatment team recommends weaponsbe removed from the home until your outpatient provider reassesses your progress. In rare cases where the items themselvescannot be removed, guns and ammunitionshould be secured separatelyand keys stored by a reliable personoutside of the home. If you were admitted on an involuntary commitment, the police or other legal authorities may be involved in this process. AFTERCARE APPOINTMENTS: * Please call your insurance company prior to your scheduled appointment to confirm your aftercare providers are covered. Take your insurance information to your appointments. WHO TO CALL AND WHEN: Medical Emergencies: For questions or emergencies related to your hospital stay, please contact the Inpatient Behavioral Health Unit at [phone]. A plate filler is on-call 30/04 for the Behavioral Health Unit for emergencies At any time you feel your situation is an emergency, you may also call 911 immediately. Pending Studies at Discharge: No Stand-Alone Forms: My [facility], Smoking Cessation Medications and DC Order Prescriptions: New buspirone 5 mg Tablet 5 mg PO TID PRN (Reason: anxiety) Qty: 30 0RF escitalopram oxalate 20 mg Tablet 20 mg PO QAM Qty: 30 0RF Discharge Orders: Discharge Order (Routine); Ordered 08/04/22 Ordered By: Xenia Cardenas Admission Data Admit Date/Time: 08/01/22 22:40 Attending Provider: Xenia Cardenas Admit Provider: Xenia Cardenas Primary Care Provider: [facility] Other Interventions: Discharge Summary Assessment (RN) Last Done: 08/04/22 09:47 PSY Interdisciplinary Discharge Planning Last Done: 08/04/22 09:49 Coding Level of Care Code 18854 D/C day mgmt > 30 min Diagnoses Depression with suicidal ideation F32.A; R45.851
== END 2022-08-04 10:20 | disposition home or self-care (01) | DRG 881 ==
LOC: ED 16:32 → 3S 22:20

== ENCOUNTER 2025-06-29 15:11 | Inpatient (IN) ==
--- NOTE | 2025-06-29 15:47 | Emergency Department Note ---
Impression & Plan Suicidal ideation, Depressed ED Provider Note NAME: SARAHI REIS AGE: 25 SEX: F : 2000 ARRIVES VIA: Walk-In INFORMANT: [Patient] ED PROVIDER(S): [Yoshi Fraser MD] CHIEF COMPLAINT: Mental health evaluation HISTORY OF PRESENT ILLNESS: Patient is a 25-year-old female who presents with 2-1/2 weeks of increasing depression. She is bipolar. She states that via virtual appointment, she had her medications increased although, this has not made her feel any better. She is not sure why she is more depressed as there has been no new stressor. The patient has been in bed for almost 2-1/2 weeks. She is not eating well, she is not functioning, she has had not been going to class at [facility]. The patient has been inpatient previously, she presents to our hospital asking for inpatient care. She has had some suicidal thoughts but has no actual current plan. PMHx/PSHx/Social Hx: See Below PHYSICAL EXAM: GENERAL: Patient is in no acute distress. HEENT: No acute trauma, normocephalic atraumatic, mucous membranes moist, no nasal congestion. NECK: No stridor, no adenopathy, no meningismus, trachea is midline. LUNGS: Clear to auscultation bilaterally, no wheeze, no rhonchi, breath sounds equal. HEART: Without murmurs gallops or rubs, regular rate and rhythm. ABDOMEN: Soft, nontender, no peritonitis. EXTREMITIES: No cyanosis, full range of motion of all the joints without pain or difficulty. NEUROLOGIC: Oriented x 3, no acute motor or sensory deficits, no focal weakness. SKIN: No jaundice, no diaphoresis. Psychiatric: Cooperative, voluntary, flattened affect. DIFFERENTIAL DIAGNOSIS: Psychosis, depression, anxiety, medication noncompliance, among others. EMERGENCY DEPARTMENT PROCEDURES: MEDICAL DECISION MAKING: There is no leukocytosis or concerning anemia. There is a normal platelet count. No renal failure or significant electrolyte abnormality. No concerning liver enzyme elevation. Patient appears to be in a euthyroid state. testing is negative. Urinalysis does not show infection. Aspirin, Tylenol and alcohol levels are undetectable. Urine tox shows marijuana. COVID test was negative. On exam, the patient was cooperative, she was voluntary. She did admit to suicidal ideation as well as depression. The patient was felt medically clear. She was seen by psychiatry case management. Patient was accepted to our [facility] psychiatric facility, 3 S. The appropriate paperwork for the voluntary psychiatric admission was completed and signed. No issues with the patient's behavior during her time in the ED under my care. Prior/Outside records/notes reviewed: None Imaging/x-ray results per my interpretation: Chronic Medical/Social conditions affecting care: History of bipolar disease. Previous inpatient psychiatric hospitalization. Care/Management discussed with: Psychiatry case management. Level of care consideration(s): After review of the information above and other included data: --I believe the patient requires escalation of care to voluntary psychiatric admission DISPOSITION: Admission to our hospital's psychiatric floor/3 S. Past Med/Surg History Problem List Depressed (Acute) Suicidal ideation (Acute) No significant past surgical history Medical History Depression with suicidal ideation Surgical History No significant past surgical history Social History Smoking Status: Never smoker Preferred Language: Bahraini Communication Ability: Effective Cosmetic Assembler Required: No Beliefs That Will Affect Care: None Feels Safe at Home: Yes Gender Identity: Female Assistive Devices: Contacts Allergies Allergies Allergy/AdvReac Type Severity Reaction Status Date / Time No Known Allergies Allergy Verified 06/29/25 17:20 Home Meds Home Medications Medication Instructions Recorded Confirmed cholecalciferol (vitamin D3) 25 25 mcg PO QAM 06/29/25 06/29/25 mcg (1,000 unit) capsule (Vitamin D3) lamotrigine 100 mg tablet 100 mg PO QAM 06/29/25 06/29/25 (Lamictal) magnesium oxide 400 mg PO QAM 06/29/25 06/29/25 sertraline 50 mg tablet (Zoloft) 50 mg PO QAM 06/29/25 06/29/25 viloxazine 100 mg capsule,extended 100 mg PO QAM 06/29/25 06/29/25 release 24 hr (Qelbree) Results & Data (ED) Vital Signs Vital Signs - 24 hr 06/29/25 15:14 Temperature 36.6 C Temperature Source Temporal Artery Scan Pulse Rate 97 H Respiratory Rate 18 Respiratory Effort / Characteristics Non-Labored Spontaneous Respiratory Depth Normal Respiratory Pattern Regular Blood Pressure 116/87 Blood Pressure Mean 96 Pulse Oximetry 98 Oxygen Delivery Method Room Air Sepsis Recent Fever Within 48 Hours No Sepsis New/Unexplained Change in Mental Status N/A Sepsis Action Taken by Nursing No Action Required Home Medications Current Medication List: was personally reviewed by me Laboratory Data Attestation: I reviewed the patient's lab results. 06/29/25 15:47 06/29/25 15:47 Lab Results 06/29/25 Range/Units 15:47 WBC 9.79 (4.8-10.8) K/ul RBC 4.61 (4.20-5.40) M/uL Hgb 14.3 (12.0-16.0) g/dl Hct 42.4 (37.0-47.0) % MCV 92.0 (80.0-100.0) fL MCH 31.0 (25.0-34.0) pg MCHC 33.7 (32.0-36.0) g/dL RDW Std Deviation 41.1 (36.4-46.3) fL RDW Coeff of Kapil 12.2 (11.5-14.5) % Plt Count 262 (130-400) K/uL MPV 11.7 (9.4-12.4) fL Immature Gran % (Auto) 0.2 % Neut % (Auto) 72.0 % Lymph % (Auto) 24.2 % [place] % (Auto) 2.8 % Eos % (Auto) 0.3 % Baso % (Auto) 0.5 % Neut # (Auto) 7.05 H (1.40-6.50) K/uL Lymph # (Auto) 2.37 (1.20-3.40) K/uL [place] # (Auto) 0.27 (0.11-0.59) K/uL Eos # (Auto) 0.03 (0.00-0.50) K/uL Baso # (Auto) 0.05 (0.00-0.20) K/uL Immature Gran # (Auto) 0.02 (0.01-0.20) K/uL Sodium 140 (136-145) mmol/L Potassium 3.9 (3.5-5.1) mmol/L Chloride 105 (98-107) mmol/L Carbon Dioxide 28 (21-32) mmol/L Anion Gap 7 (3-11) BUN 13 (6-23) mg/dl Creatinine 0.84 (0.6-1.2) mg/dl Est Cr Clr Drug Dosing 93.7 ml/min eGFR 100.08 BUN/Creatinine Ratio 15.5 (10-20) Glucose 125 H (70-99(Fasting)) mg/dl Calcium 9.7 (8.6-10.3) mg/dl Total Bilirubin 0.4 (0.2-1.0) mg/dl AST 11 L (13-39) U/L ALT 10 (7-52) U/L Alkaline Phosphatase 44 (34-104) U/L Total Protein 7.6 (6.0-8.3) gm/dl Albumin 4.7 (3.4-5.0) gm/dl Globulin 2.9 (2.5-4.0) gm/dl Albumin/Globulin Ratio 1.6 (0.9-2) TSH 1.419 (0.300-4.500) uIu/ml HCG, Qual Negative (Negative) Salicylates < 3.0 L (3.0-30) mg/dl Acetaminophen < 3 L (10-30) ug/ml Ethyl Alcohol mg/dL < 10.0 (<10.0) mg/dl SARS-CoV-2, RNA, NAAT NEGATIVE (NEGATIVE) Administered Medications Non-Formulary Patient's Own Med: Qelbree (Viloxazine) 1 each PO DAILY CHIVO Stop: 07/30/25 08:59 Last Admin: 06/29/25 22:27 Dose: 1 ea Documented By: RB Discontinued Medications Lamotrigine (Lamotrigine 100 Mg Tab) 100 mg PO NOW STA; Protocol Stop: 06/29/25 22:21 Last Admin: 06/29/25 22:27 Dose: 100 mg Documented By: RB Sertraline HCl (Sertraline Hcl 50 Mg Tablet) 50 mg PO ONE ONE Stop: 06/29/25 22:20 Last Admin: 06/29/25 22:27 Dose: 50 mg Documented By: RB Discharge Plan Visit Data Chief Complaint: Mental Health Evaluation Stated Complaint: MENTAL HEALTH EVAL ED Provider: Yoshi Fraser Discharge Problem: Suicidal ideation, Depressed Patient Disposition: Admitted As Inpatient Condition: Good Discharge Instructions Interventions: ED Discharge Assessment Last Done: 06/29/25 18:03 Discharge Problem: Depressed Qualifiers: Depression Type: unspecified Qualified Code(s): F32.A - Depression, unspecified
[2025-06-29 16:09] LABS: Hematocrit (blood only) 42.4 % (37.0-47.0); Hemoglobin 14.3 g/dl (12.0-16.0); Immature Granulocytes # (auto) 0.02 K/uL (0.01-0.20); Immature Granulocytes % (auto) 0.2 %; Mean Corpuscular Hemoglobin 31.0 pg (25.0-34.0); Mean Corpuscular Volume 92.0 fL (80.0-100.0); Platelet Count 262 K/uL (130-400); RDW Standard Deviation 41.1 fL (36.4-46.3); Red Blood Count 4.61 M/uL (4.20-5.40); White Blood Count 9.79 K/ul (4.8-10.8)
[2025-06-29 16:20] LABS: Alanine Aminotransferase 10.0 U/L (7-52); Albumin Globulin Ratio 1.6 (0.9-2); Albumin Level 4.7 gm/dl (3.4-5.0); Alkaline Phosphatase 44.0 U/L (34-104); Anion Gap 7.0 (3-11); Bilirubin,Total 0.4 mg/dl (0.2-1.0); Blood Urea Nitrogen 13.0 mg/dl (6-23); Calcium 9.7 mg/dl (8.6-10.3); Carbon Dioxide 28.0 mmol/L (21-32); Chloride 105.0 mmol/L (98-107); Creatinine Clr Calc Pharmacy 93.7 ml/min; Globulin 2.9 gm/dl (2.5-4.0); Glucose 125.0 mg/dl (70-99(Fasting)); Potassium 3.9 mmol/L (3.5-5.1); Sodium 140.0 mmol/L (136-145); Total Protein 7.6 gm/dl (6.0-8.3)
[2025-06-29 16:21] LABS: Pregnancy Test, Serum Negative (Negative)
[2025-06-29 16:23] LABS: Appearance Urine Clear (Clear); Bacteria Urine Automated 1+ (None Seen); Cast Urine Automated 0-2 /lpf (0-2); Epithelial Cell Urine Auto 0-2 /hpf (0-2); Glucose Urine UA Negative (Negative); RBC Urine Automated 0-2 /hpf (0-2); WBC Urine Automated 0-5 /hpf (0-5)
[2025-06-29 16:31] LABS: Acetaminophen < 3 ug/ml (10-30); Salicylate < 3.0 mg/dl (3.0-30)
[2025-06-29 16:34] LABS: Thyroid Stimulating Hormone 1.419 uIu/ml (0.300-4.500)
[2025-06-29 17:03] LABS: Amphetamines+Metham, Urine Neg (Neg); MDMA (Ecstacy), Urine Neg (Neg); Marijuana, Urine Pos (Neg)
[2025-06-29] MEDS ORDERED: ALUMINUM/MAGNESIUM SUSP 30 ML UDC PO PRN (18:40)
[2025-06-29] MEDS ORDERED: BISMUTH SUBSALICYLATE 262 MG CHEW PO PRN (18:40)
[2025-06-29] MEDS ORDERED: MAGNESIUM HYDROXIDE SUSP 30 ML UDC PO PRN (18:40)
[2025-06-29] MEDS ORDERED: SODIUM CHLORIDE 0.65% NA SOLN 45 ML (OCEAN) PRN (18:40)
[2025-06-29] MEDS: [UNRECOGNIZED DRUG - OTHER] PO SCH (22:27)
[2025-06-29] MEDS: SERTRALINE HCL 50 MG TABLET PO ONE (22:27)
[2025-06-29] MEDS: lamoTRIgine 100 MG TAB PO STA (22:27)
[2025-06-30] MEDS: SERTRALINE HCL 50 MG TABLET PO SCH (08:46)
[2025-06-30] MEDS: lamoTRIgine 100 MG TAB PO SCH (08:46)
--- NOTE | 2025-06-30 09:06 | History & Physical ---
Date of Service June 30, 2025 Impression / Recommendations Impression Pt self-presented to the ED, requesting psychiatric treatment for worsening depression and SI, without a plan or intent. She denies any recent attempts or acts of furtherance. Reported she has been increasingly down, with low energy and excessive sleep. Differential diagnosis: Bipolar 2 likely, with current episode primarily depressed, some mixed features (lability, racing thoughts). I suspect the hypomanic episode was precipitated by addition of Zoloft without adequate mood stabilizer coverage. She has only ever been on Lamictal which is not a particularly good antimanic agent, and just got to a good dose (100mg) last week, after symptoms started. Additioanlly, some of her affective symptoms could reflect borderline personality (interpersonal conflict, rapid fluctuation of mood/affect, hx of cutting). I suspect her excessive rumination is due to a maladaptive coping pattern (ie - tendency to intellectualize rather than emote) rather than OSBALDO at this time since she doesn't describe much actual worry; alternatively may be a symptom of anxious attachment, or even ADHD (which is currently unconfirmed). I gave pt several screening tools and reviewed the results with her. PHQ9: 24, GAD7: 15, MDQ +, Stevens +, LORENA: 0. We reviewed the results together. We explored the borderline personality criteria, and she did relate to several. Her description and MDQ do strongly suggest hx of hypomania, so BPD would be an additional diagnosis, not a replacement for bipolar 2. Discussed at length the risks, benefits, and alternatives for treating her mood with an SGA (specifically Abilify) vs. [place]. Pt is concerned that hypothyroidism runs in her family and that she is already losing hair, so she preferred to try Abilify. Start 5mg in AM. Also continue on Lamictal for bipolar depression. Also reviewed my rec to d/c Zoloft given it may have contributed to mood switching. Since Zoloft was added for anxiety, rec a retrial of Buspar instead. She does not recall any past negative effects from it. Start 5mg BID. She'd like to d/c Qelbre, since she doesn't find it helpful, and I agree. Overall, I spent a total of 120 minutes on this patient's care, including review of chart, direct evaluation of the patient x 2, review of screening questionnaires, counseling the patient, ordering medication and labs, coordination with nursing, interdisciplinary team meeting, and documentation. (1) Bipolar 2 disorder, major depressive episode: (2) Borderline personality disorder: Plan The patient was admitted to the [facility] ([facility]) on q15 min checks (behavioral with suicide precautions) for safety. The patient will participate in group, recreational, and milieu therapies and will be offered additional individual and family sessions as clinically appropriate. -D/c Zoloft. D/c Qelbre. - Start Abilify 5mg. - Continue lamictal 100mg. - fasting labs ordered for AM, since starting an SGA. - baseline labs and EKG reviewed. Inventory Assets Strengths: self-referred to ED. Fair insight and judgement. psychologically minded. Has established outpatient providers. Some social supports Needs: poor self-esteem new diagnosis of borderline personality hopelessness Suicide Risk Level Suicide Risk Level: Moderate (q15 min suicide checks) Suicide Risk Level Comments: reports SI and severe depression with hopeless. But no plan or intent currently. Risk Factors Assessment Male: No : Yes Do You Have Access To A Gun?: No Health Problems: No Mental Health Diagnoses: Yes Substance Use Disorders: No Previous Attempt: Yes Family History of Suicide: No Previous Psychiatric Hospitalization: Yes Hopelessness: Yes Protective Factors Assessment : No Responsible for Young Children: No Employed: No Stable Relationships: Yes Supportive Family: Yes Good Rapport with Provider: Yes Psychiatric History Identifying Data SARAHI REIS is a 25-year-old [employer] student, with a history of bipolar 2 disorder and ADHD, and was admitted on 06/29/25 17:46 on a 201 voluntary commitment for increasing SI and depression immediately following a recent hypomanic episode, in the context of recently getting back on medication after a 6-12 month hiatus, and newly starting Zoloft. Chief Complaint "[]". History of Present Illness Pt self-presented to the ED, requesting psychiatric treatment for worsening depression and SI, without a plan or intent. She denies any recent attempts or acts of furtherance. Reported she has been increasingly down, with low energy and excessive sleep. She was previously admitted to this unit s/p suicide attempt in 2021, and at that time was diagnosed with MDDR and anxiety. Since then, her diagnosis has changed to bipolar 2, and ADHD was also identified. She does have outpatient providers, but inadvertently stopped her medications when she studied abroad last year (fall) in [place]. She identified "I do better when I have a routine." She did not restart her meds upon returning home in the Spring. In fact, just restarted Lamictal and Qelbre about 6 weeks ago. Zoloft was newly added at that time to target anxiety. Then, about 4 weeks ago she developed hypomania, identifying her symptoms as: decreased sleep but increased energy, laughing and joking excessively, more social, more talkative and increased spending. No particularly reckless behavior. Some increased goal-directed activity. Symptoms lasted for about a week. Then her mood "crashed" into a depression, which has now been ongoing about 2.5 weeks. Symptoms of depression have included poor energy, excessive sleeping, excessive rumination, and tearfulness. She describes at times, labile mood. "I feel a little manic right now. Lately my mood changes by the minute." She followed up with her outpatient provider, who increased Lamictal to 100mg last Sunday. Pt describes herself as a chronic over-thinker. "I'm really self-aware but I don't know how to fix things." Some of her stress is related to mixed signals from a recent romantic interest, but she also clearly stated that "it's not all about that. I'm not functioning." She has been missing classes. Also states "my outlook is bad", describing in general pessimism which has escalated to "I just don't care any more." She struggles with self-worth related to her mental health diagnoses -- "I can't trust even what I do, because it changes", and has a negative outlook on her future as a result. Acknowledges chronic hopelessness and distrust of others, especially men. +hx of cutting - none recently. Per nursing staff, pt arrived last yesterday and has not yet attended any groups. She slept 10.25 hours. Eating well. Past Psychiatric History Previous Psych History: Current providers - telehealth therapy and medication management through a practice in [facility] in 2021 for dep and SI +hx of NSSI - none recently Current Psychiatric Diagnosis: Bipolar II Do You Have Access To A Gun?: No History of Previous Suicide Attempt: Yes Past Medication Trials: Lexapro, buspar, wellbutrin, zoloft, lamictal, Qelbre Additional Notes: + hx of trauma per patient (did not reveal details) Past Head Trauma/Neuro History none Allergies Allergy/AdvReac Type Severity Reaction Status Date / Time No Known Allergies Allergy Verified 06/29/25 17:20 Home Medications Medication Instructions Recorded Confirmed Type cholecalciferol (vitamin D3) 25 25 mcg PO QAM 06/29/25 06/29/25 History mcg (1,000 unit) capsule (Vitamin D3) lamotrigine 100 mg tablet 100 mg PO QAM 06/29/25 06/29/25 History (Lamictal) magnesium oxide 400 mg PO QAM 06/29/25 06/29/25 History sertraline 50 mg tablet (Zoloft) 50 mg PO QAM 06/29/25 06/29/25 History viloxazine 100 mg capsule,extended 100 mg PO QAM 06/29/25 06/29/25 History release 24 hr (Qelbree) Family History Family History of: Anxiety Family Mental Health History Comment: Mother HX of anxiety Alcohol History Hx of Alcohol Use Over the Past 12 Months: Yes (socially/sparingly) AUDIT Total Score: 5 Smoking Use Have You Smoked or Used Tobacco Products in the Last 30 Days: No Smoking Status: Never smoker Substance History Hx of Prescription Med Misuse Over the Past 12 Months: No Hx of Over the Counter Med Misuse Over the Past 12 Months: No Hx of Inhalent Misuse Over the Past 12 Months: No Hx of Organic Substance Use Over the Past 12 Months: Yes (marijuana sparingly, desires to quit) Hx of Illegal Substances/Street Drug Use Over Past 12 Months: No Problems as a Result of Past Substance Use: None Identified Personal History Living Arrangements: Apartment Highest Grade Completed: Some College Highest Grade Completed Comment: current 6th year at [employer] in [employer] - took 1 year off, and studied abroad x 1 semester Marital Status: Single Number Of Children: none Beliefs That Will Affect Care: None Current Legal Problems: No Hx Legal Problems: No Hx Traumatic Life Events: Yes (did not give details. No childhood abuse.) Patient History Medical History Depression with suicidal ideation Surgical History No significant past surgical history Social History Smoking Status: Never smoker Preferred Language: Swedish Communication Ability: Effective Duster Tender Required: No Beliefs That Will Affect Care: None Feels Safe at Home: Yes Gender Identity: Female Assistive Devices: Contacts Review of Systems Review of Systems: Constitutional: No Weight Change, No Fever, No Chills ENT/Mouth: No Hearing Changes, No Hoarseness, No Vision Changes Cardiovascular: No Chest Pain, No SOB, No Edema, No Palpitations Respiratory: No Cough, No Wheezing Gastrointestinal: No Nausea, No Vomiting, No Diarrhea, No Constipation, Genitourinary: No Dysuria, No No Urinary Incontinence Musculoskeletal: No Joint Stiffness, No Back Pain, No Neck Pain Skin: No Skin Lesions, No Pruritis, reports hair loss/thinning Neuro: No Weakness, No Numbness, No Dizziness, No Headache, No Coordination Changes, No Recent Falls Heme/Lymph: No Bruising, No Bleeding Endocrine: No Polyuria, No Polydipsia, No Temperature Intolerance Physical Exam Psychiatric: Orientation: alert and oriented x 3 Apperance: appropriately dressed and appropriately groomed Eye Contact: + fair eye contact Motor Behavior: + psychomotor agitation mild - just fidgeting Speech: normal rate/rhythm/volume of speech talkative, a bit rambling Affect: + constricted affect Mood: + depressed mood Thought Process: goal directed thought process and + circumstantial thought process Thought Content: + cognitive distortions, + hopelessness and + self deprecation; no preoccupation, no obsessions and no delusions Suicidal Thoughts: denies suicidal plan and denies suicidal intent; + reports suicidal thoughts Homicidal Thoughts: denies homicidal thoughts, denies homicidal plan and denies homicidal intent Hallucinations: no auditory hallucinations and no visual hallucinations Cognition: recent memory grossly intact, remote memory grossly intact, attention grossly intact and language grossly intact Estimated Intelligence: consistent with education level Insight: + fair insight Judgment: + fair judgement Vital Signs (Past 24 Hours): Last Vital Signs Temp 36.8 C 06/30/25 06:44 Pulse 101 H 06/30/25 06:45 Resp 16 06/30/25 06:44 BP 114/73 06/30/25 06:45 Pulse Ox 100 06/29/25 18:53 O2 Del Method Room Air 06/29/25 18:53 Physical Examination: A physical exam was performed in the ER prior to admission to the unit by Dr. Yoshi Fraser. I accept that physical as correct/medical clearance for the inpatient physical exam. Results & Data ([facility]) Laboratory Results Laboratory Results - last 24 hr 06/29/25 06/29/25 15:47 Unknown WBC 9.79 RBC 4.61 Hgb 14.3 Hct 42.4 MCV 92.0 MCH 31.0 MCHC 33.7 RDW Std Deviation 41.1 RDW Coeff of Kapil 12.2 Plt Count 262 MPV 11.7 Immature Gran % (Auto) 0.2 Neut % (Auto) 72.0 Lymph % (Auto) 24.2 [place] % (Auto) 2.8 Eos % (Auto) 0.3 Baso % (Auto) 0.5 Neut # (Auto) 7.05 H Lymph # (Auto) 2.37 [place] # (Auto) 0.27 Eos # (Auto) 0.03 Baso # (Auto) 0.05 Immature Gran # (Auto) 0.02 Sodium 140 Potassium 3.9 Chloride 105 Carbon Dioxide 28 Anion Gap 7 BUN 13 Creatinine 0.84 Est Cr Clr Drug Dosing 93.7 eGFR 100.08 BUN/Creatinine Ratio 15.5 Glucose 125 H Calcium 9.7 Total Bilirubin 0.4 AST 11 L ALT 10 Alkaline Phosphatase 44 Total Protein 7.6 Albumin 4.7 Globulin 2.9 Albumin/Globulin Ratio 1.6 TSH 1.419 HCG, Qual Negative Urine Color Yellow Urine Appearance Clear Urine pH 6.0 Ur Specific [place] 1.027 Urine Protein 2+ H Urine Glucose (UA) Negative Urine Ketones Negative Urine Blood Trace H Urine Nitrite Negative Urine Bilirubin Negative Urine Urobilinogen Negative Ur Leukocyte Esterase Negative Urine WBC (Auto) 0-5 Urine RBC (Auto) 0-2 U Hyaline Cast (Auto) 0-2 U Epithel Cells (Auto) 0-2 Urine Bacteria (Auto) 1+ H Urine Comment Salicylates < 3.0 L Urine Opiates Screen Neg Ur Methadone, Qual Neg Urine Fentanyl Screen Neg Acetaminophen < 3 L Urine Barbiturates Neg Ur Phencyclidine (PCP) Neg U Amphetamin/Meth Scrn Neg MDMA (Ecstasy) Screen Neg U Benzodiazepines Scrn Neg Ur Cocaine Metabolite Neg U Marijuana (THC) Screen Pos H U Marijuana THC Carboxy Pending Drug Screen Comment Pending Ethyl Alcohol mg/dL < 10.0 SARS-CoV-2, RNA, NAAT NEGATIVE Current Inpatient Medications Current Inpatient Medications: Current Inpatient Medications Acetaminophen (Acetaminophen 325 Mg Tab) 650 mg PO Q4H PRN PRN Reason: Headache or Minor Fever Stop: 07/29/25 18:39 Al Hydrox/Mg Hydrox/Simethicone (Aluminum/Magnesium Susp 30 Ml Udc) 30 ml PO Q4H PRN PRN Reason: GI Upset Stop: 07/29/25 18:39 Bismuth Subsalicylate (Bismuth Subsalicylate 262 Mg Chew) 2 tab PO Q30M PRN PRN Reason: Loose Stool/Diarrhea Stop: 07/29/25 18:39 Hydroxyzine HCl (Hydroxyzine Hcl 25 Mg Tab) 50 mg PO HSZ PRN PRN Reason: Insomnia Stop: 07/29/25 18:39 Hydroxyzine HCl (Hydroxyzine Hcl 25 Mg Tab) 25 mg PO Q4H PRN PRN Reason: Anxiety Stop: 07/29/25 18:39 Lamotrigine (Lamotrigine 100 Mg Tab) 100 mg PO QAM CHIVO; Protocol Stop: 07/30/25 08:59 Last Admin: 06/30/25 08:46 Dose: 100 mg Magnesium Hydroxide (Magnesium Hydroxide Susp 30 Ml Udc) 30 ml PO DAILY PRN PRN Reason: Constipation Stop: 07/29/25 18:39 Non-Formulary Patient's Own Med: Qelbree (Viloxazine) 1 each PO DAILY CHIVO Stop: 07/30/25 08:59 Last Admin: 06/30/25 08:46 Dose: 1 ea Sertraline HCl (Sertraline Hcl 50 Mg Tablet) 50 mg PO QAM CHIVO Stop: 07/30/25 08:59 Last Admin: 06/30/25 08:46 Dose: 50 mg Sodium Chloride (Sodium Chloride 0.65% Na Soln 45 Ml ([place])) 1 - 2 sprays NA PRN PRN PRN Reason: Nasal Dryness/Congestion Stop: 07/29/25 18:39
[2025-06-30] MEDS: busPIRone 5 MG TAB PO SCH (21:34)
[2025-07-01 07:50] LABS: Cholesterol 160.0 mg/dl (0-200); HDL Cholesterol 60.0 mg/dl; Triglycerides 83.0 mg/dl (0-150)
[2025-07-01 08:00] LABS: Hemoglobin A1C 5.1 % (4.5-5.6)
--- NOTE | 2025-07-01 08:46 | Psychiatric Progress Note ---
Date of Service July 01, 2025 Impression / Recommendations Impression Pt self-presented to the ED, requesting psychiatric treatment for worsening depression and SI, without a plan or intent. She denies any recent attempts or acts of furtherance. Reported she has been increasingly down, with low energy and excessive sleep. Differential diagnosis: Bipolar 2 likely, with current episode primarily depressed, some mixed features (lability, racing thoughts). I suspect the hypomanic episode was precipitated by addition of Zoloft without adequate mood stabilizer coverage. She has only ever been on Lamictal which is not a particularly good antimanic agent, and just got to a good dose (100mg) last week, after symptoms started. Additioanlly, some of her affective symptoms could reflect borderline personality (interpersonal conflict, rapid fluctuation of mood/affect, hx of cutting). I suspect her excessive rumination is due to a maladaptive coping pattern (ie - tendency to intellectualize rather than emote) rather than OSBALDO at this time since she doesn't describe much actual worry; alternatively may be a symptom of anxious attachment, or even ADHD (which is currently unconfirmed). I gave pt several screening tools and reviewed the results with her. PHQ9: 24, GAD7: 15, MDQ +, Stevens +, LORENA: 0. We reviewed the results together. We explored the borderline personality criteria, and she did relate to several. Her description and MDQ do strongly suggest hx of hypomania, so BPD would be an additional diagnosis, not a replacement for bipolar 2. Today, I spent a total of 35 minutes on this patient's care, including review of chart, direct evaluation of the patient x 2, review of screening questionnaires, counseling the patient, ordering medication and labs, coordination with nursing, interdisciplinary team meeting, and documentation. (1) Bipolar 2 disorder, major depressive episode: (2) Borderline personality disorder: Plan 07/01/25: Patient symptoms are starting to improve, but depression and anxiety are both still present. Increase Abilify to 10 mg to target mood stabilization. Increase BuSpar to 10 mg twice daily to target anxiety. Continue Lamictal without change. Encouraged ongoing group participation. Patient did sign an IBRAHIMA for her mother after speaking with her today, and a support meeting is planned. Anticipating likely discharge Sunday. 06/30/25: The patient was admitted to the [facility] ([facility]) on q15 min checks (behavioral with suicide precautions) for safety. The patient will participate in group, recreational, and milieu therapies and will be offered additional individual and family sessions as clinically appropriate. -D/c Zoloft. D/c Qelbre. - Start Abilify 5mg. - Continue lamictal 100mg. - fasting labs ordered for AM, since starting an SGA. - baseline labs and EKG reviewed. Inventory Assets Strengths: self-referred to ED. Fair insight and judgement. psychologically minded. Has established outpatient providers. Some social supports Needs: poor self-esteem new diagnosis of borderline personality hopelessness Suicide Risk Level Suicide Risk Level: Moderate (q15 min suicide checks) Suicide Risk Level Comments: reports SI and severe depression with hopeless. But no plan or intent currently. Risk Factors Assessment Male: No : Yes Do You Have Access To A Gun?: No Health Problems: No Mental Health Diagnoses: Yes Substance Use Disorders: No Previous Attempt: Yes Family History of Suicide: No Previous Psychiatric Hospitalization: Yes Hopelessness: Yes Protective Factors Assessment : No Responsible for Young Children: No Employed: No Stable Relationships: Yes Supportive Family: Yes Good Rapport with Provider: Yes Interval History Chief Complaint "[]". Review of Systems Sleep Information Total Hours of Sleep: 8 Meal Information Percent Meal Consumed - Breakfast: 100 Percent Meal Consumed - Lunch: 50 Percent Meal Consumed - Dinner: 40 Subjective Subjective Patient was seen & assessed and interval progress reviewed with nursing and social work per nursing report, patient was visible out of her room and attended programming yesterday and this a.m. She has at times appeared bright. At other times has some irritation with an intrusive peer (which is reasonable). She reported mood was 7 out of 10 and described as "hopeful". She did take an afternoon nap. She had declined a support meeting and did not sign IBRAHIMA's for family as of this a.m. I met with the patient in her room. She reported she is feeling "fine today." No suicidal ideation. She feels depression is stabilizing. She has a headache this morning, but denies GI upset, tremor, or restlessness. She reported anxiety is still present. No auditory visual hallucinations or disorganization or delusions. Says she feels "good" on present medications. She is willing to increase the dose to a more typically therapeutic level. She was future oriented and was requesting a timeline for discharge. She has a goal of attending the football game this weekend with her brother. Physical Exam Psychiatric Orientation: alert and oriented x 3 Apperance: appropriately dressed and appropriately groomed Eye Contact: good eye contact Motor Behavior: steady gait and station and no abnormal motor movements; n EPS Less fidgety than yesterday Speech: normal rate/rhythm/volume of speech a bit constricted on approach, did brighten later in the encounter Mood: + depressed mood and + anxious mood improving. Thought Process: goal directed thought process, linear/logical thought process and clear/coherent thought process Thought Content: no preoccupation, no obsessions and no delusions Some chronically negative self-talk Suicidal Thoughts: denies suicidal thoughts, denies suicidal plan and denies suicidal intent Homicidal Thoughts: denies homicidal thoughts, denies homicidal plan and denies homicidal intent Hallucinations: no auditory hallucinations and no visual hallucinations Cognition: recent memory grossly intact, remote memory grossly intact, attention grossly intact and language grossly intact Estimated Intelligence: consistent with education level Insight: + fair insight Judgment: + fair judgement Vital Signs (Past 24 Hours) Last Vital Signs Temp 36.5 C 07/01/25 06:27 Pulse 99 H 07/01/25 06:27 Resp 16 07/01/25 06:27 BP 93/61 L 07/01/25 06:27 Pulse Ox 100 06/29/25 18:53 O2 Del Method Room Air 06/29/25 18:53 Results & Data ([facility]) Laboratory Results Laboratory Results - last 24 hr 07/01/25 07:10 Estimat Average Glucose 100 Hemoglobin A1c 5.1 Triglycerides 83 Cholesterol 160 LDL Cholesterol, Calc 83 VLDL Cholesterol, Calc 17 HDL Cholesterol 60 Cholesterol/HDL Ratio 2.7 Current Inpatient Medications Current Inpatient Medications: Current Inpatient Medications Acetaminophen (Acetaminophen 325 Mg Tab) 650 mg PO Q4H PRN PRN Reason: Headache or Minor Fever Stop: 07/29/25 18:39 Al Hydrox/Mg Hydrox/Simethicone (Aluminum/Magnesium Susp 30 Ml Udc) 30 ml PO Q4H PRN PRN Reason: GI Upset Stop: 07/29/25 18:39 Aripiprazole (Aripiprazole 5 Mg Tab) 5 mg PO QAM CHIVO Stop: 07/31/25 08:59 Bismuth Subsalicylate (Bismuth Subsalicylate 262 Mg Chew) 2 tab PO Q30M PRN PRN Reason: Loose Stool/Diarrhea Stop: 07/29/25 18:39 Buspirone HCl (Buspirone 5 Mg Tab) 5 mg PO BID CHIVO Stop: 07/30/25 20:59 Last Admin: 06/30/25 21:34 Dose: 5 mg Hydroxyzine HCl (Hydroxyzine Hcl 25 Mg Tab) 50 mg PO HSZ PRN PRN Reason: Insomnia Stop: 07/29/25 18:39 Hydroxyzine HCl (Hydroxyzine Hcl 25 Mg Tab) 25 mg PO Q4H PRN PRN Reason: Anxiety Stop: 07/29/25 18:39 Lamotrigine (Lamotrigine 100 Mg Tab) 100 mg PO QAM CHIVO; Protocol Stop: 07/30/25 08:59 Last Admin: 06/30/25 08:46 Dose: 100 mg Magnesium Hydroxide (Magnesium Hydroxide Susp 30 Ml Udc) 30 ml PO DAILY PRN PRN Reason: Constipation Stop: 07/29/25 18:39 Sodium Chloride (Sodium Chloride 0.65% Na Soln 45 Ml ([place])) 1 - 2 sprays NA PRN PRN PRN Reason: Nasal Dryness/Congestion Stop: 07/29/25 18:39 Mental Health & Subst Abuse Tx Therapist Name of Therapist: [facility] [place] Date of Therapist Appointment: Every Sunday Time of Therapist Appointment: 1pm Log Haul Chain Feeder Name of Log Haul Chain Feeder: n/a Post Discharge Appointments Primary Care Physician Name Of Family Doctor/PCP: N/A
[2025-07-01] MEDS ORDERED: VILOXAZINE HCL PO SCH (09:00)
[2025-07-01] MEDS: ARIPiprazole 5 MG TAB PO SCH (09:06)
[2025-07-01] MEDS: ACETAMINOPHEN 325 MG TAB PO PRN (19:38)
[2025-07-01] MEDS: busPIRone 5 MG TAB PO SCH (19:39)
--- NOTE | 2025-07-02 08:41 | Psychiatric Progress Note ---
Date of Service July 02, 2025 Impression / Recommendations Impression Pt self-presented to the ED, requesting psychiatric treatment for worsening depression and SI, without a plan or intent. She denies any recent attempts or acts of furtherance. Reported she has been increasingly down, with low energy and excessive sleep. Differential diagnosis: Bipolar 2 likely, with current episode primarily depressed, some mixed features (lability, racing thoughts). I suspect the hypomanic episode was precipitated by addition of Zoloft without adequate mood stabilizer coverage. She has only ever been on Lamictal which is not a particularly good antimanic agent, and just got to a good dose (100mg) last week, after symptoms started. Additioanlly, some of her affective symptoms could reflect borderline personality (interpersonal conflict, rapid fluctuation of mood/affect, hx of cutting). I suspect her excessive rumination is due to a maladaptive coping pattern (ie - tendency to intellectualize rather than emote) rather than OSBALDO at this time since she doesn't describe much actual worry; alternatively may be a symptom of anxious attachment, or even ADHD (which is currently unconfirmed). I gave pt several screening tools and reviewed the results with her. PHQ9: 24, GAD7: 15, MDQ +, Stevens +, LORENA: 0. We reviewed the results together. We explored the borderline personality criteria, and she did relate to several. Her description and MDQ do strongly suggest hx of hypomania, so BPD would be an additional diagnosis, not a replacement for bipolar 2. Today, I spent a total of 35 minutes on this patient's care, including review of chart, direct evaluation of the patient x 2, review of screening questionnaires, counseling the patient, ordering medication and labs, coordination with nursing, interdisciplinary team meeting, and documentation. (1) Bipolar 2 disorder, major depressive episode: (2) Borderline personality disorder: Plan 07/02/25: continue current medications and treatment. Planning for discharge tomorrow 07/01/25: Patient symptoms are starting to improve, but depression and anxiety are both still present. Increase Abilify to 10 mg to target mood stabilization. Increase BuSpar to 10 mg twice daily to target anxiety. Continue Lamictal without change. Encouraged ongoing group participation. Patient did sign an IBRAHIMA for her mother after speaking with her today, and a support meeting is planned. Anticipating likely discharge Sunday. 06/30/25: The patient was admitted to the [facility] ([facility] unit) on q15 min checks (behavioral with suicide precautions) for safety. The patient will participate in group, recreational, and milieu therapies and will be offered additional individual and family sessions as clinically appropriate. -D/c Zoloft. D/c Qelbre. - Start Abilify 5mg. - Continue lamictal 100mg. - fasting labs ordered for AM, since starting an SGA. - baseline labs and EKG reviewed. Inventory Assets Strengths: self-referred to ED. Fair insight and judgement. psychologically minded. Has established outpatient providers. Some social supports Needs: poor self-esteem new diagnosis of borderline personality hopelessness Suicide Risk Level Suicide Risk Level: Low (q15 min observation checks) Suicide Risk Level Comments: recent history of SI and hopelessness, although these are resolving now. No plan or intent to harm self. She feels safe on the unit and can reach out if symptoms worsen. Risk Factors Assessment Male: No : Yes Do You Have Access To A Gun?: No Health Problems: No Mental Health Diagnoses: Yes Substance Use Disorders: No Previous Attempt: Yes Family History of Suicide: No Previous Psychiatric Hospitalization: Yes Hopelessness: Yes Protective Factors Assessment : No Responsible for Young Children: No Employed: No Stable Relationships: Yes Supportive Family: Yes Good Rapport with Provider: Yes Interval History Chief Complaint "[]". Review of Systems Sleep Information Total Hours of Sleep: 4.75 Meal Information Percent Meal Consumed - Breakfast: 100 Percent Meal Consumed - Lunch: 60 Percent Meal Consumed - Dinner: 75 Subjective Subjective Patient was seen & assessed and interval progress reviewed with [treatment team] [nursing and social work] Per nursing report, patient slept only 4.75 hours. She had difficulty falling asleep and took Vistaril which helped to some degree. She attended some groups. She reported her mood was 8 out of 10 and "excited". She has been attending to her ADLs, showering and eating appropriately. Met with the patient in her room today. She says "I am feeling fine." She says she was anxious overnight, in part thinking about having to and a romantic relationship after discharge. "I hate confrontation." She did use as needed hydroxyzine and that seemed to help. She denies it affecting her mood significantly today. She continues to deny suicidal ideation. No urges to self-harm. No hallucinations or paranoia. She feels she is tolerating the medication well. No akathisia, GI upset, headache or other side effects. Difficult to tell whether she has any sedation this a.m., as she did not sleep well last night. Will continue to monitor that. She asked appropriate questions about discharge planning and follow-up. She related that her parents are actually coming into town and will pick her up from the hospital tomorrow, and take her home. She is looking forward to attending the [employer] football game tomorrow with her brother. She did brighten at times during our encounter. No tearfulness or lability was noted. She has a mild degree of restlessness which she says is baseline, and she typically is does fidget often. Physical Exam Psychiatric Orientation: alert, oriented x 3 and cooperative Apperance: appropriately dressed and appropriately groomed Eye Contact: good eye contact Motor Behavior: steady gait and station and no abnormal motor movements; n EPS Fidgeting Speech: normal rate/rhythm/volume of speech Affect: euthymic affect and mood congruent with affect full range Mood: + anxious mood Thought Process: goal directed thought process, linear/logical thought process and clear/coherent thought process Thought Content: reality based without delusions some anxious rumination Suicidal Thoughts: denies suicidal thoughts, denies suicidal plan and denies suicidal intent Homicidal Thoughts: denies homicidal thoughts, denies homicidal plan and denies homicidal intent Hallucinations: no auditory hallucinations and no visual hallucinations Cognition: recent memory grossly intact, remote memory grossly intact, attention grossly intact and language grossly intact Estimated Intelligence: consistent with education level Insight: good insight Judgment: good judgement Vital Signs (Past 24 Hours) Last Vital Signs Temp 36.8 C 07/02/25 06:17 Pulse 101 H 07/02/25 06:18 Resp 16 07/02/25 06:17 BP 107/69 07/02/25 06:18 Pulse Ox 100 06/29/25 18:53 O2 Del Method Room Air 06/29/25 18:53 Results & Data ([facility]) Current Inpatient Medications Current Inpatient Medications: Current Inpatient Medications Acetaminophen (Acetaminophen 325 Mg Tab) 650 mg PO Q4H PRN PRN Reason: Headache or Minor Fever Stop: 07/29/25 18:39 Last Admin: 07/01/25 19:38 Dose: 650 mg Al Hydrox/Mg Hydrox/Simethicone (Aluminum/Magnesium Susp 30 Ml Udc) 30 ml PO Q4H PRN PRN Reason: GI Upset Stop: 07/29/25 18:39 Aripiprazole (Aripiprazole 10 Mg Tab) 10 mg PO QAM CHIVO Stop: 08/01/25 08:59 Bismuth Subsalicylate (Bismuth Subsalicylate 262 Mg Chew) 2 tab PO Q30M PRN PRN Reason: Loose Stool/Diarrhea Stop: 07/29/25 18:39 Buspirone HCl (Buspirone 5 Mg Tab) 10 mg PO BID CHIVO Stop: 07/31/25 20:59 Last Admin: 07/01/25 19:39 Dose: 10 mg Hydroxyzine HCl (Hydroxyzine Hcl 25 Mg Tab) 50 mg PO HSZ PRN PRN Reason: Insomnia Stop: 07/29/25 18:39 Last Admin: 07/02/25 00:43 Dose: 50 mg Hydroxyzine HCl (Hydroxyzine Hcl 25 Mg Tab) 25 mg PO Q4H PRN PRN Reason: Anxiety Stop: 07/29/25 18:39 Lamotrigine (Lamotrigine 100 Mg Tab) 100 mg PO QAM CHIVO; Protocol Stop: 07/30/25 08:59 Last Admin: 07/01/25 09:06 Dose: 100 mg Magnesium Hydroxide (Magnesium Hydroxide Susp 30 Ml Udc) 30 ml PO DAILY PRN PRN Reason: Constipation Stop: 07/29/25 18:39 Sodium Chloride (Sodium Chloride 0.65% Na Soln 45 Ml ([place])) 1 - 2 sprays NA PRN PRN PRN Reason: Nasal Dryness/Congestion Stop: 07/29/25 18:39 Mental Health & Subst Abuse Tx Psychiatrist Name of Psychiatrist: [facility] Comment: Patient to schedule follow up appointment upon discharge Therapist Name of Therapist: [facility]Diane Leonard Date of Therapist Appointment: Every Sunday Time of Therapist Appointment: 1pm Trim Mechanic Name of Trim Mechanic: n/a Post Discharge Appointments Primary Care Physician Name Of Family Doctor/PCP: N/A
[2025-07-02] MEDS: INFLUENZA VACC TS2025-26(6m+)/PF (IIV3) 0.5mL Syr IM ONE (11:59)
[2025-07-03 08:12] LABS: Marijuana Quant, GCMS Urine 951 ng/mL (<5)
--- NOTE | 2025-07-03 08:58 | Discharge Summary ---
Date of Service July 03, 2025 History of Present Illness Pt self-presented to the ED, requesting psychiatric treatment for worsening depression and SI, without a plan or intent. She denies any recent attempts or acts of furtherance. Reported she has been increasingly down, with low energy and excessive sleep. She was previously admitted to this unit s/p suicide attempt in 2021, and at that time was diagnosed with MDDR and anxiety. Since then, her diagnosis has changed to bipolar 2, and ADHD was also identified. She does have outpatient providers, but inadvertently stopped her medications when she studied abroad last year (fall) in [place]. She identified "I do better when I have a routine." She did not restart her meds upon returning home in the Spring. In fact, just restarted Lamictal and Qelbre about 6 weeks ago. Zoloft was newly added at that time to target anxiety. Then, about 4 weeks ago she developed hypomania, identifying her symptoms as: decreased sleep but increased energy, laughing and joking excessively, more social, more talkative and increased spending. No particularly reckless behavior. Some increased goal-directed activity. Symptoms lasted for about a week. Then her mood "crashed" into a depression, which has now been ongoing about 2.5 weeks. Symptoms of depression have included poor energy, excessive sleeping, excessive rumination, and tearfulness. She describes at times, labile mood. "I feel a little manic right now. Lately my mood changes by the minute." She followed up with her outpatient provider, who increased Lamictal to 100mg last Sunday. Pt describes herself as a chronic over-thinker. "I'm really self-aware but I don't know how to fix things." Some of her stress is related to mixed signals from a recent romantic interest, but she also clearly stated that "it's not all about that. I'm not functioning." She has been missing classes. Also states "my outlook is bad", describing in general pessimism which has escalated to "I just don't care any more." She struggles with self-worth related to her mental health diagnoses -- "I can't trust even what I do, because it changes", and has a negative outlook on her future as a result. Acknowledges chronic hopelessness and distrust of others, especially men. +hx of cutting - none recently. Per nursing staff, pt arrived late yesterday and has not yet attended any groups. She slept 10.25 hours. Eating well. Physical Exam Psychiatric Orientation: alert, oriented x 3 and cooperative Apperance: appropriately dressed and appropriately groomed Eye Contact: good eye contact Motor Behavior: steady gait and station and no abnormal motor movements; n EPS Speech: normal rate/rhythm/volume of speech Affect: euthymic affect and mood congruent with affect Thought Process: goal directed thought process, linear/logical thought process and clear/coherent thought process Thought Content: reality based without delusions; no preoccupation, no obsessions and no delusions Suicidal Thoughts: denies suicidal thoughts, denies suicidal plan and denies suicidal intent Homicidal Thoughts: denies homicidal thoughts, denies homicidal plan and denies homicidal intent Hallucinations: no auditory hallucinations and no visual hallucinations Cognition: recent memory grossly intact, attention grossly intact and language grossly intact Estimated Intelligence: consistent with education level Insight: good insight Judgment: good judgement Vital Signs (Past 24 Hours) Last Vital Signs Temp 36.9 C 07/03/25 06:22 Pulse 116 H 07/03/25 06:22 Resp 16 07/03/25 06:22 BP 120/73 07/03/25 06:22 Pulse Ox 100 06/29/25 18:53 O2 Del Method Room Air 06/29/25 18:53 Principal Diagnosis Bipolar 2 disorder Borderline personality disorder Psychiatric Data See daily stay summary. In short, safety was maintained and the patient was cooperative with care. Medication changes included addition of Abilify, and addition of BuSpar and they tolerated this well. A family session was held and safety plan was completed prior to discharge. Day of Discharge Assessment Today the patient voices readiness for discharge. They note improvement in mood and deny thoughts to harm self or others. Thoughts remain organized and they are improved from admission. There is no evidence of psychosis. They agree to take mediations as prescribed and keep follow-up appointments. They are stable for discharge to outpatient level of care. Transition of Care Transition Of Care Record: was reviewed with the patient Advance Directives Advance Directives Information Provided: Yes Advance Directives: No Mental Health Advance Directive: No Advance Directives on File: No Living Will: No Power of Freelance Photographer: No Advance Directives Reason:: Declines as Mental Health Visit. Suicide Risk Level Suicide Risk Level: Low (q15 min observation checks) Suicide Risk Level Comments: suicidal ideation has resolved. Risk Factors Assessment Male: No : Yes Do You Have Access To A Gun?: No Health Problems: No Mental Health Diagnoses: Yes Substance Use Disorders: No Previous Attempt: Yes Family History of Suicide: No Previous Psychiatric Hospitalization: Yes Hopelessness: No Protective Factors Assessment : No Responsible for Young Children: No Employed: No Stable Relationships: Yes Supportive Family: Yes Good Rapport with Provider: Yes Total Time Total Time Spent: Greater Than 30 Minutes Discharge Data Lab Results 06/29/25 06/29/25 07/01/25 15:47 Unknown 07:10 WBC 9.79 RBC 4.61 Hgb 14.3 Hct 42.4 MCV 92.0 MCH 31.0 MCHC 33.7 RDW Std Deviation 41.1 RDW Coeff of Kapil 12.2 Plt Count 262 MPV 11.7 Immature Gran % (Auto) 0.2 Neut % (Auto) 72.0 Lymph % (Auto) 24.2 [place] % (Auto) 2.8 Eos % (Auto) 0.3 Baso % (Auto) 0.5 Neut # (Auto) 7.05 H Lymph # (Auto) 2.37 [place] # (Auto) 0.27 Eos # (Auto) 0.03 Baso # (Auto) 0.05 Immature Gran # (Auto) 0.02 Sodium 140 Potassium 3.9 Chloride 105 Carbon Dioxide 28 Anion Gap 7 BUN 13 Creatinine 0.84 Est Cr Clr Drug Dosing 93.7 eGFR 100.08 BUN/Creatinine Ratio 15.5 Glucose 125 H Estimat Average Glucose 100 Hemoglobin A1c 5.1 Calcium 9.7 Total Bilirubin 0.4 AST 11 L ALT 10 Alkaline Phosphatase 44 Total Protein 7.6 Albumin 4.7 Globulin 2.9 Albumin/Globulin Ratio 1.6 Triglycerides 83 Cholesterol 160 LDL Cholesterol, Calc 83 VLDL Cholesterol, Calc 17 HDL Cholesterol 60 Cholesterol/HDL Ratio 2.7 TSH 1.419 HCG, Qual Negative Urine Color Yellow Urine Appearance Clear Urine pH 6.0 Ur Specific [place] 1.027 Urine Protein 2+ H Urine Glucose (UA) Negative Urine Ketones Negative Urine Blood Trace H Urine Nitrite Negative Urine Bilirubin Negative Urine Urobilinogen Negative Ur Leukocyte Esterase Negative Urine WBC (Auto) 0-5 Urine RBC (Auto) 0-2 U Hyaline Cast (Auto) 0-2 U Epithel Cells (Auto) 0-2 Urine Bacteria (Auto) 1+ H Urine Comment Salicylates < 3.0 L Urine Opiates Screen Neg Ur Methadone, Qual Neg Urine Fentanyl Screen Neg Acetaminophen < 3 L Urine Barbiturates Neg Ur Phencyclidine (PCP) Neg U Amphetamin/Meth Scrn Neg MDMA (Ecstasy) Screen Neg U Benzodiazepines Scrn Neg Ur Cocaine Metabolite Neg U Marijuana (THC) Screen Pos H U Marijuana THC Carboxy 951 H Drug Screen Comment SEE NOTE Ethyl Alcohol mg/dL < 10.0 SARS-CoV-2, RNA, NAAT NEGATIVE Hospital Course (1) Bipolar 2 disorder, major depressive episode: (2) Borderline personality disorder: Plan 07/02/25: continue current medications and treatment. Planning for discharge tomorrow. 07/01/25: Patient symptoms are starting to improve, but depression and anxiety are both still present. Increase Abilify to 10 mg to target mood stabilization. Increase BuSpar to 10 mg twice daily to target anxiety. Continue Lamictal without change. Encouraged ongoing group participation. Patient did sign an IBRAHIMA for her mother after speaking with her today, and a support meeting is planned. Anticipating likely discharge Sunday. 06/30/25: The patient was admitted to the [facility] ([facility] mental [facility] unit) on q15 min checks (behavioral with suicide precautions) for safety. The patient will participate in group, recreational, and milieu therapies and will be offered additional individual and family sessions as clinically appropriate. -D/c Zoloft. D/c Qelbre. - Start Abilify 5mg. - Continue lamictal 100mg. - fasting labs ordered for AM, since starting an SGA. - baseline labs and EKG reviewed. Mental Health & Subst Abuse Tx Psychiatrist Name of Psychiatrist: [facility] Psychiatrist's Date Of Appointment With Psychiatric Provider: 07/16/25 Time of Appointment with Psychiatrist: 3PM Psychiatric Appointment Comment: virtual - link will be sent via text and email Therapist Name of Therapist: [facility] Therapist's Date of Therapist Appointment: 07/03/25 Time of Therapist Appointment: 1pm Therapy Appointment Comment: virtual Wood Carving Machine Operator Name of Wood Carving Machine Operator: n/a Post Discharge Appointments Primary Care Physician Name Of Family Doctor/PCP: N/A Other #1: Name of Aftercare Appointment: [facility] Post Hospitalization Zoom Phone Number of Aftercare Appointment: [phone] Date of Aftercare Appointment: 07/06/25 Time of Aftercare Appointment: 10am Aftercare Appointment Comment: link will be sent to your [facility] email Contact Information [facility]charge [facility] [place] [address] Discharge Plan Discharge Items Patient Disposition: Home - Self-Care Reason For Visit: BIPOLAR II DISORDER Discharge Diagnosis: Bipolar 2 disorder, Borderline personality disorder Condition on Discharge: Good Activity: Resume your previous activity Non-emergency contact: Primary Care Provider, Psychiatrist and Therapist Call non-emergency contact if: you have any medication questions and your symptoms worsen Follow-up/Referrals: [facility] [Primary Care Provider] - Diet: Regular Addtl Attending Provider Instructions: SPECIAL CARE INSTRUCTIONS: 1. Follow through with your scheduled aftercare appointments. If unable to keep an appointment, please call to reschedule. 2. Take your medication only as prescribed. Medication should not be changed or stopped without the approval of your doctor. In the event of worsening symptoms or concerns about side effects, contact your doctor immediately. 3. Utilize new healthy coping skills, anger management skills, and stress management skills learned during your hospitalization. Journal feelings and process them with a support person. Identify stressors or situations that may result in relapse, deterioration or inappropriate behaviors and develop a plan to deal with those issues. 4. If your coping skills are ineffective and you are in crisis, contact your outpatient providers for direction. If unable to reach your providers, please call the [facility] CRISIS LINE AT , go to the [facility] walk-in center at [address], [address], [place], or go to the closest Emergency Room. 5. Avoid alcohol and un-prescribed drugs. 6. You have been provided with the Mental Health Advance Directives Pamphlet for your review. 7. Your condition is stable for discharge to outpatient level of care, but recovery is an ongoing process. Ifthoughts to harm yourself or others return, follow the safety plan developed during your stay. Planning for a safe return home includes securing weapons. Our treatment team recommends weaponsbe removed from the home until your outpatient provider reassesses your progress. In rare cases where the items themselvescannot be removed, guns and ammunitionshould be secured separatelyand keys stored by a reliable personoutside of the home. If you were admitted on an involuntary commitment, the police or other legal authorities may be involved in this process. AFTERCARE APPOINTMENTS: * Please call your insurance company prior to your scheduled appointment to confirm your aftercare providers are covered. Take your insurance information to your appointments. WHO TO CALL AND WHEN: Medical Emergencies: For questions or emergencies related to your hospital stay, please contact the Inpatient Behavioral Health Unit at [phone]. A orthotic/prosthetic clinician is on-call 30/04 for the Behavioral Health Unit for emergencies At any time you feel your situation is an emergency, you may also call 911 immediately. Pending Studies at Discharge: No Stand-Alone Forms: My [employer], Smoking Cessation Medications and DC Order Prescriptions: New aripiprazole [Abilify] 10 mg Tablet 10 mg PO QAM 30 Days Qty: 30 0RF buspirone 10 mg tablet 10 mg PO BID 30 Days Qty: 60 0RF hydroxyzine HCl 25 mg Tablet 50 mg PO HSZ PRN (Reason: anxiety or insomnia) 30 Days Qty: 60 0RF Continued cholecalciferol (vitamin D3) [Vitamin D3] 25 mcg (1,000 unit) Capsule 25 mcg PO QAM magnesium oxide 400 mg magnesium Tablet 400 mg PO QAM lamotrigine [Lamictal] 100 mg tablet 100 mg PO QAM 30 Days Qty: 30 0RF Discontinued sertraline [Zoloft] 50 mg tablet 50 mg PO QAM Qelbree 100 mg capsule,extended release 24hr 100 mg PO QAM Discharge Orders: Discharge Order (Routine); Ordered 07/03/25 Ordered By: Caridad Ny/Other Patient Handouts: Understanding Bipolar Disorder, BPD Admission Data Admit Date/Time: 06/29/25 17:46 Attending Provider: Caridad Jaquez Admit Provider: Caridad Jaquez Primary Care Provider: [facility] Other Interventions: Discharge Summary Assessment (RN) Last Done: 07/03/25 10:38 PSY Interdisciplinary Discharge Planning Last Done: 07/03/25 10:38 Coding Level of Care Code 72724 D/C day mgmt > 30 min Diagnoses Bipolar 2 disorder, major depressive episode F31.81 Borderline personality disorder F60.3
[2025-07-03] MEDS ORDERED: DESTROY THIS MEDICATION ONE (09:50)
== END 2025-07-03 11:27 | disposition home or self-care (01) | DRG 885 ==
LOC: ED 15:11 → 3S 17:46